=== PATIENT | female | born 1990 | race African-American/Black ===

== ENCOUNTER 2017-03-20 15:55 | Emergency (ER) | payer SELFPAY ==
[2017-03-20] MEDS ORDERED: ONDANSETRON 4 MG TAB.RAPDIS ONE (16:24)
[2017-03-20] MEDS ORDERED: ONDANSETRON 4 MG TAB.RAPDIS PO ONE (16:26)
[2017-03-20] MEDS ORDERED: METOCLOPRAMIDE HCL INJ/PF 10 MG/2 ML SDV IV ONE (16:27)
[2017-03-20] MEDS ORDERED: DIPHENHYDRAMINE HCL 50 MG/ML VIAL IV ONE (16:27)
--- NOTE | 2017-03-20 16:30 | ER Document Report ---
ED Medical Screen (RME) - General Chief Complaint: Flank Pain Stated Complaint: LEFT SIDE PAIN Time Seen by Provider: 03/20/17 16:25 Mode of Arrival: Wheelchair Information source: Patient Notes: This is a 26-year-old female with no prior medical problems who presents to the emergency room with left flank pain, nausea and vomiting since 9 PM last night. Patient denies any fever. Patient has not been able to tolerate any fluids or food. Past surgical history: Allergies: Iodine, shellfish Medications: Mirena Family history: No history of kidney stones TRAVEL OUTSIDE OF THE [place] IN LAST 30 DAYS: No - Related Data Allergies/Adverse Reactions: iodine [Iodine] Allergy (Verified 03/20/17 15:58) Past Medical History Renal/ Medical History: Denies: Hx Peritoneal Dialysis - Immunizations Hx Diphtheria, Pertussis, Tetanus Vaccination: Yes Physical Exam - Vital signs Vitals: Temp Pulse Resp BP Pulse Ox 98.3 F 96 22 H 117/79 100 03/20/17 15:58 03/20/17 15:58 03/20/17 15:58 03/20/17 15:58 03/20/17 15:58 Course - Vital Signs Vital signs: Temp Pulse Resp BP Pulse Ox 98.3 F 96 22 H 117/79 100 03/20/17 15:58 03/20/17 15:58 03/20/17 15:58 03/20/17 15:58 03/20/17 15:58
[2017-03-20] MEDS: NORMAL SALINE 1000 ML 1,000 ML IV PRN ×2 (17:09→19:07)
[2017-03-20 17:17] LABS: ABSOLUTE LYMPHOCYTES (AUTO) 1.4 10^3/uL (0.5-4.7); ABSOLUTE NEUT (AUTO) 9.9 10^3/uL (1.7-8.2); BASOPHILS % (AUTO) 0.3 % (0-2); EOSINOPHILS % (AUTO) 0.1 % (0-6); HEMATOCRIT 45.1 % (36.0-47.0); HEMOGLOBIN 14.6 g/dL (12.0-15.5); HGB HCT DIFFERENCE -1.3; LYMPHOCYTES % (AUTO) 11.2 % (13-45); MEAN CORPUSCULAR HEMOGLOBIN 29.2 pg (27.0-33.4); MEAN CORPUSCULAR HGB CONC 32.4 g/dL (32.0-36.0); MEAN CORPUSCULAR VOLUME 90 fl (80-97); MONOCYTES % (AUTO) 7.9 % (3-13); RED BLOOD COUNT 5.01 10^6/uL (3.72-5.28); SEGMENTED NEUTROPHILS % (AUTO) 80.5 % (42-78); WHITE BLOOD COUNT 12.3 10^3/uL (4.0-10.5)
[2017-03-20 17:33] LABS: PROTHROMBIN TIME 14.5 SEC (11.4-15.4)
[2017-03-20 17:40] LABS: ALANINE AMINOTRANSFERASE 25 U/L (9-52); ALBUMIN 4.4 g/dL (3.5-5.0); ALKALINE PHOSPHATASE 55 U/L (38-126); ANION GAP 13 (5-19); ASPARTATE AMINO TRANSFERASE 19 U/L (14-36); BILIRUBIN,DIRECT 0.3 mg/dL (0.0-0.4); BILIRUBIN,TOTAL 0.7 mg/dL (0.2-1.3); BLOOD UREA NITROGEN 15 mg/dL (7-20); CALCIUM 10.2 mg/dL (8.4-10.2); CARBON DIOXIDE 21 mmol/L (22-30); CHLORIDE 104 mmol/L (98-107); CREATININE RESULT 1.08 mg/dL (0.52-1.25); GLUCOSE 105 mg/dL (75-110); POTASSIUM 4.3 mmol/L (3.6-5.0); SODIUM 137.9 mmol/L (137-145); TOTAL PROTEIN 8.4 g/dL (6.3-8.2)
--- NOTE | 2017-03-20 17:45 | ER Document Report ---
ED General - General Chief Complaint: Flank Pain Stated Complaint: LEFT SIDE PAIN Time Seen by Provider: 03/20/17 16:25 Mode of Arrival: Wheelchair Notes: 26-year-old female presenting with 24 hours of left flank pain radiating to the left back, severe, associated with nausea vomiting and decreased oral intake. Associated with general fatigue. No dysuria. Decreased urine output. No hematuria. No fever chills vaginal discharge or bleeding. She does not have periods secondary to a Mirena IUD. TRAVEL OUTSIDE OF THE [place] IN LAST 30 DAYS: No - Related Data Allergies/Adverse Reactions: iodine [Iodine] Allergy (Verified 03/20/17 15:58) Past Medical History - General Information source: Patient - Social History Smoking Status: Never Smoker Family History: None Patient has suicidal ideation: No Patient has homicidal ideation: No Renal/ Medical History: Denies: Hx Peritoneal Dialysis - Immunizations Hx Diphtheria, Pertussis, Tetanus Vaccination: Yes Review of Systems - Review of Systems Notes: REVIEW OF SYSTEMS GEN: Denies fever, chills, weight loss ENT: Denies sore throat, nasal discharge, ear pain EYES: Denies blurry vision, eye pain, discharge CV: Denies chest pain, palpitations, edema RESP: Denies cough, shortness of breath, wheezing GI: D left flank pain nausea vomiting MSK: Back pain SKIN: Denies rash, skin lesions LYMPH: Denies swollen glands/lymph nodes NEURO: Denies headache, focal weakness or numbness, dizziness PSYCH: Denies depression, suicidal or homicidal ideation PHYSICAL EXAMINATION General: Under blanket in position Head: Atraumatic, normocephalic ENT: Mouth normal, oropharynx moist, no exudates or tonsillar enlargement Eyes: Conjunctiva normal, pupils equal, lids normal Neck: No JVD, supple, no guarding CVS: Normal rate, regular rhythm, no murmurs Resp: No resp distress, equal and normal breath sounds bilaterally GI: Nondistended, soft, no tenderness to palpation, no rebound or guarding Ext: No deformities, no edema, normal range of motion in upper and lower ext Back: N mild left CVA tenderness Skin: No rash, warm Lymphatic: No lymphadeopathy noted Neuro: Awake, alert. Face symmetric. GCS 15. Physical Exam - Vital signs Vitals: Temp Pulse Resp BP Pulse Ox 98.3 F 96 22 H 117/79 100 07/08/17 15:58 03/20/17 15:58 03/20/17 15:58 03/20/17 15:58 03/20/17 15:58 Course - Re-evaluation Re-evalutation: 03/20/17 19:42 Acute flank pain without fever and minimal CVA tenderness. She pyelonephritis versus stone. Urinalysis shows contamination and a few white but mostly red cells. Ordered CT which shows obstructing small ureterolithiasis on the left. Given the slight leukocytes and will treat her with Cipro and then she will receive a complement of kidney stone medications. She was improved with Toradol and fluids in the ED, did not have signs of sepsis, and is reliable to follow-up as an outpatient. I have discussed with the patient there likely diagnosis, aftercare plan, follow-up plans and my usual and customary return precautions. They verbalized understanding of this. - Vital Signs Vital signs: Temp Pulse Resp BP Pulse Ox 98.3 F 96 22 H 117/79 100 03/20/17 15:58 03/20/17 15:58 03/20/17 15:58 03/20/17 15:58 03/20/17 15:58 - Laboratory Result Diagrams: 03/20/17 17:00 03/20/17 17:00 Laboratory results interpreted by me: 03/20/17 03/20/17 03/20/17 17:00 17:00 18:23 WBC 12.3 H Seg Neutrophils % 80.5 H Lymphocytes % 11.2 L Absolute Neutrophils 9.9 H Carbon Dioxide 21 L Total Protein 8.4 H Urine Protein 100 H Urine Ketones TRACE H Urine Blood LARGE H - Diagnostic Test Radiology reviewed: Image reviewed Discharge - Discharge Clinical Impression: Left nephrolithiasis Condition: Good Disposition: HOME, SELF-CARE Instructions: Kidney Stone ([facility]) Additional Instructions: Your pain is being caused by a kidney stone. I am prescribing medication to control the pain and help to pass the stone. He also a very small infection in your urine which we should treat with antibiotics. He will receive a prescription for this as well. Is very important that you follow-up with a urologist within 1 week. I have given you this information. If you cannot get that appointment, or your pain gets worse or you get a fever or feel dizzy or have any other concerns please return to the ER immediately. Prescriptions: Tamsulosin HCl [Flomax] 0.4 mg PO QHS #7 cap.er.24h Ciprofloxacin HCl [Cipro 500 mg Tablet] 500 mg PO BID #20 tablet Ibuprofen [Motrin 600 Mg Tablet] 600 mg PO TID #15 tablet Ondansetron [Zofran Odt 4 mg Tablet] 1 - 2 tab PO Q4H PRN #15 tab.rapdis PRN Reason: For Nausea/Vomiting Oxycodone HCl/Acetaminophen [Percocet 5-325 mg Tablet] 1 - 2 tab PO Q4H PRN #15 tablet PRN Reason: Referrals: ROSALINDA GASTELUM MD [ACTIVE STAFF] - Follow up in 3-5 days
[2017-03-20] MEDS ORDERED: KETOROLAC TROMETHAMINE INJ/PF 30 MG/1 ML SDV IV ONE (18:43)
[2017-03-20 19:03] LABS: APPEARANCE,URINE CLOUDY; BILIRUBIN,URINE NEGATIVE (NEGATIVE); GLUCOSE, URINE NEGATIVE (NEGATIVE); KETONES,URINE TRACE mg/dL (NEGATIVE); LEUKOCYTE ESTERASE,URINE NEGATIVE (NEGATIVE); NITRITE,URINE NEGATIVE (NEGATIVE); PROTEIN,URINE 100 mg/dL (NEGATIVE); URINE SPECIFIC GRAVITY 1.035; UROBILINOGEN,URINE NEGATIVE mg/dL (<2.0)
[2017-03-20] MEDS ORDERED: CIPROFLOXACIN HCL 500 MG TABLET PO ONE (19:09)
--- NOTE | 2017-03-20 19:43 | RADIOLOGY REPORT (SQ) ---
EXAM DESCRIPTION: CT ABD/PELVIS NO ORAL OR IV COMPLETED DATE/TIME: 03/20/2017 7:25 pm REASON FOR STUDY: stone? COMPARISON: None. TECHNIQUE: CT scan of the abdomen and pelvis performed without intravenous or oral contrast. Images reviewed with lung, soft tissue, and bone windows. Reconstructed coronal and sagittal MPR images revi ewed. All images stored on PACS. All CT scanners at this facility use dose modulation, iterative reconstruction, and/or weight based d osing when appropriate to reduce radiation dose to as low as reasonably achievable (ALARA). [facility]: Dose Right [facility]: CareDose [facility]: Dose Right [facility]: Teradose 4D [facility]: Smart EQUISO RADIATION DOSE: Up-to-date CT equipment and radiation dose reduction techniques were employed. CTDIv ol: 18.1 mGy. DLP: 992 mGy-cm.mGy. LIMITATIONS: None. FINDINGS: LOWER CHEST: Trace left lung base atelectasis. No significant findings. No nodules or inf iltrates. NON-CONTRASTED LIVER, SPLEEN, ADRENALS: Evaluation limited by lack of IV contrast. No identified sign ificant masses. PANCREAS: No masses. No peripancreatic inflammatory changes. GALLBLADDER: No identified stones by CT criteria. No inflammatory changes to suggest cholecystitis. RIGHT KIDNEY AND URETER: No suspicious masses. Assessment limited by lack of IV contrast. No signif icant calcifications. No hydronephrosis or hydroureter. LEFT KIDNEY AND URETER: No suspicious masses. Assessment limited by lack of IV contrast. A single n onobstructing nephrolith is demonstrated. Moderate hydronephrosis and hydroureter on the basis of a 3 x 5 mm proximal ureterolith. AORTA AND RETROPERITONEUM: No aneurysm. No retroperitoneal masses or adenopathy. BOWEL AND PERITONEAL CAVITY: No obvious masses or inflammatory changes. No free fluid. APPENDIX: Normal. PELVIS, BLADDER, AND ABDOMINAL WALL:No abnormal masses. No free fluid. Bladder normal. An intrauteri ne device is present without evidence of gross complication. BONES: No significant findings. OTHER: No other significant finding. IMPRESSION: 3 x 5 mm left ureterolith with moderate upstream ureterectasis and hydronephrosis. TECHNICAL DOCUMENTATION: JOB ID: [id number] Quality ID # [id number]: Final reports with documentation of one or more dose reduction techniques (e.g., Au tomated exposure control, adjustment of the mA and/or kV according to patient size, use of iterative reconstruction technique) 2010 [employer]- All Rights Reserved
[2017-03-20 20:05] VITALS: BP 111/57
== END 2017-03-20 20:20 | disposition home or self-care (01) ==
LOC: ER 15:55
DX: N13.2 Hydronephrosis with renal and ureteral calculous obstruction (principal); R11.2 Nausea with vomiting, unspecified; R10.9 Unspecified abdominal pain; R53.83 Other fatigue; M54.9 Dorsalgia, unspecified; Z97.5 Presence of (intrauterine) contraceptive device
CPT/HCPCS: 99284; 96374; 96375; 36415; 84702; 85025; 85610; 80053; 81001; 74176; J1200; S0119; J1885; J2765; J7030

== ENCOUNTER 2017-03-22 14:32 | Emergency (ER) | payer SELFPAY ==
[2017-03-22] MEDS ORDERED: HYDROMORPHONE HCL INJ/PF 2 MG/ML AMPULE IV ONE (15:39)
[2017-03-22] MEDS ORDERED: ONDANSETRON HCL INJ/PF 4 MG/2 ML SDV IV ONE (15:39)
[2017-03-22] MEDS ORDERED: KETOROLAC TROMETHAMINE INJ/PF 30 MG/1 ML SDV IV ONE (15:39)
--- NOTE | 2017-03-22 15:56 | ER Document Report ---
ED General - General Chief Complaint: Flank Pain Stated Complaint: ABDOMINAL PAIN Time Seen by Provider: 03/22/17 15:33 Mode of Arrival: Ambulatory Information source: Patient Notes: 26 yr old female who was diagnosed with 3 x 5 mm stone with hydronephrosis presents with complaints of continued pain. Patient did not take her pain medication until just prior to arrival and now notes that pain has since resolved. Patient denies any fevers or chills admits ot nausea and ovmiting TRAVEL OUTSIDE OF THE [place] IN LAST 30 DAYS: No - HPI Onset: Other - 3 Day duration Onset/Duration: Persistent Quality of pain: Achy Severity: Mild Pain Level: 1 Associated symptoms: Nausea, Vomiting Exacerbated by: Denies Relieved by: Denies Similar symptoms previously: Yes Recently seen / treated by doctor: Yes - Related Data Allergies/Adverse Reactions: iodine [Iodine] Allergy (Verified 03/20/17 15:58) Past Medical History - Social History Smoking Status: Never Smoker Cigarette use (# per day): No Chew tobacco use (# tins/day): No Smoking Education Provided: No Frequency of alcohol use: None Drug Abuse: None Family History: None Patient has suicidal ideation: No Patient has homicidal ideation: No Renal/ Medical History: Denies: Hx Peritoneal Dialysis Past Surgical History: Reports: Hx Section - x1 - Immunizations Hx Diphtheria, Pertussis, Tetanus Vaccination: Yes Review of Systems - Review of Systems Notes: REVIEW OF SYSTEMS: CONSTITUTIONAL : Denies fever, chills, or sweats. Denies recent illness. EENT: Denies eye, ear, throat, or mouth pain or symptoms. Denies nasal or sinus congestion or discharge. Denies throat, tongue, or mouth swelling or difficulty swallowing. CARDIOVASCULAR: Denies chest pain. Denies palpitations or racing or irregular heart beat. Denies ankle edema. RESPIRATORY: Denies cough, cold, or chest congestion. Denies shortness of breath, difficulty breathing, or wheezing. GASTROINTESTINAL: Admits to flank pain GENITOURINARY: Denies difficulty urinating, painful urination, burning, frequency, blood in urine, or discharge. FEMALE GENITOURINARY: Denies vaginal bleeding, heavy or abnormal periods, irregular periods. Denies vaginal discharge or odor. MUSCULOSKELETAL: Denies back or neck pain or stiffness. Denies joint pain or swelling. SKIN: Denies rash, lesions or sores. HEMATOLOGIC : Denies easy bruising or bleeding. LYMPHATIC: Denies swollen, enlarged glands. NEUROLOGICAL: Denies confusion or altered mental status. Denies passing out or loss of consciousness. Denies dizziness or lightheadedness. Denies headache. Denies weakness or paralysis or loss of use of either side. Denies problems with gait or speech. Denies sensory loss, numbness, or tingling. Denies seizures. PSYCHIATRIC: Denies anxiety or stress. Denies depression, suicidal ideation, or homicidal ideation. ALL OTHER SYSTEMS REVIEWED AND NEGATIVE. PHYSICAL EXAMINATION: GENERAL: Well-appearing, well-nourished and in no acute distress. HEAD: Atraumatic, normocephalic. EYES: Pupils equal round and reactive to light, extraocular movements intact, conjunctiva are normal. ENT: Nares patent, oropharynx clear without exudates. Moist mucous membranes. NECK: Normal range of motion, supple without lymphadenopathy LUNGS: Breath sounds clear to auscultation bilaterally and equal. No wheezes rales or rhonchi. HEART: Regular rate and rhythm without murmurs ABDOMEN: Soft, nontender, nondistended abdomen. No guarding, no rebound. No masses appreciated. Female : deferred Musculoskeletal: Normal range of motion, no pitting or edema. No cyanosis. NEUROLOGICAL: Cranial nerves grossly intact. Normal speech, normal gait. Normal sensory, motor exams PSYCH: Normal mood, normal affect. SKIN: Warm, Dry, normal turgor, no rashes or lesions noted. Dictation was performed using [employer] voice recognition software Physical Exam - Vital signs Vitals: Temp Pulse Resp BP Pulse Ox 98.2 F 70 18 117/75 99 03/22/17 14:38 03/22/17 14:38 03/22/17 14:38 03/22/17 14:38 03/22/17 14:38 Course - Re-evaluation Re-evalutation: 03/22/17 17:02 Mild renal insufficiency is noted, patient otherwise looks well pain is well controlled, I will give her a bag of fluids she must follow-up with the urologist as her renal insufficiency is getting worse, there is no sign of infection at this time After performing a Medical Screening Examination, I estimate there is LOW risk for ACUTE APPENDICITIS, BOWEL OBSTRUCTION, ACUTE CHOLECYSTITIS, PERFORATED DIVERTICULITIS, INCARCERATED HERNIA, PANCREATITIS, PELVIC INFLAMMATORY DISEASE, PERFORATED ULCER, ECTOPIC , or TUBO-OVARIAN ABSCESS, thus I consider the discharge disposition reasonable. Also, there is no evidence or peritonitis , sepsis, or toxicity. I have reevaluated this patient multiple times and no significant life threatening changes are noted. The patient and I have discussed the diagnosis and risks, and we agree with discharging home with close follow-up with the understanding that symptoms and presentations can change. We also discussed returning to the Emergency Department immediately if new or worsening symptoms occur. We have discussed the symptoms which are most concerning (e.g., bloody stool, fever, changing or worsening pain, vomiting) that necessitate immediate return. - Vital Signs Vital signs: Temp Pulse Resp BP Pulse Ox 98.2 F 70 18 117/75 99 03/22/17 14:38 03/22/17 14:38 03/22/17 14:38 03/22/17 14:38 03/22/17 14:38 - Laboratory Result Diagrams: 03/22/17 16:09 03/22/17 16:09 Laboratory results interpreted by me: 03/22/17 03/22/17 15:33 16:09 Sodium 136.3 L Creatinine 1.38 H Est GFR ( Amer) 55 L Est GFR (Non-Af Amer) 46 L Urine Ketones TRACE H Urine Blood MODERATE H - Diagnostic Test Radiology reviewed: Image reviewed, Reports reviewed - previous ct notes 3x5 mm stone Discharge - Discharge Clinical Impression: Left nephrolithiasis, Acute renal insufficiency Nausea & vomiting Qualifiers: Vomiting type: unspecified Vomiting Intractability: non-intractable Qualified Code(s): R11.2 - Nausea with vomiting, unspecified Condition: Stable Disposition: HOME, SELF-CARE Instructions: Vomiting ([facility]) Prescriptions: Promethazine HCl [Phenergan 25 mg Tablet] 1 - 2 tab PO Q6H PRN #15 tablet PRN Reason: Referrals: CARMITA FLORES MD [ACTIVE STAFF] - Follow up tomorrow
[2017-03-22 16:20] LABS: ABSOLUTE BASOPHILS # (AUTO) 0.1 10^3/uL (0.0-0.2); ABSOLUTE EOSINOPHILS # (AUTO) 0.1 10^3/uL (0.0-0.6); ABSOLUTE LYMPHOCYTES (AUTO) 1.3 10^3/uL (0.5-4.7); ABSOLUTE MONOCYTES (AUTO) 0.8 10^3/uL (0.1-1.4); BASOPHILS % (AUTO) 0.7 % (0-2); EOSINOPHILS % (AUTO) 0.7 % (0-6); HEMOGLOBIN 13.5 g/dL (12.0-15.5); HGB HCT DIFFERENCE -1.5; MEAN CORPUSCULAR HEMOGLOBIN 29.5 pg (27.0-33.4); MEAN CORPUSCULAR HGB CONC 32.1 g/dL (32.0-36.0); MEAN CORPUSCULAR VOLUME 92 fl (80-97); MONOCYTES % (AUTO) 8.2 % (3-13); RED BLOOD COUNT 4.57 10^6/uL (3.72-5.28); RED CELL DISTRIBUTION WIDTH 12.9 % (11.5-14.0); SEGMENTED NEUTROPHILS % (AUTO) 76.4 % (42-78); WHITE BLOOD COUNT 9.1 10^3/uL (4.0-10.5)
[2017-03-22 16:36] LABS: ALANINE AMINOTRANSFERASE 17 U/L (9-52); ALBUMIN 3.7 g/dL (3.5-5.0); ALKALINE PHOSPHATASE 44 U/L (38-126); ANION GAP 9 (5-19); ASPARTATE AMINO TRANSFERASE 18 U/L (14-36); BILIRUBIN,DIRECT 0.3 mg/dL (0.0-0.4); BILIRUBIN,TOTAL 0.7 mg/dL (0.2-1.3); BLOOD UREA NITROGEN 9 mg/dL (7-20); CALCIUM 9.6 mg/dL (8.4-10.2); CARBON DIOXIDE 23 mmol/L (22-30); CHLORIDE 104 mmol/L (98-107); CREATININE RESULT 1.38 mg/dL (0.52-1.25); GLUCOSE 88 mg/dL (75-110); POTASSIUM 4.5 mmol/L (3.6-5.0); SODIUM 136.3 mmol/L (137-145); TOTAL PROTEIN 7.3 g/dL (6.3-8.2)
[2017-03-22 16:36] LABS: APPEARANCE,URINE CLEAR; BILIRUBIN,URINE NEGATIVE (NEGATIVE); GLUCOSE, URINE NEGATIVE (NEGATIVE); KETONES,URINE TRACE mg/dL (NEGATIVE); LEUKOCYTE ESTERASE,URINE NEGATIVE (NEGATIVE); NITRITE,URINE NEGATIVE (NEGATIVE); PROTEIN,URINE NEGATIVE (NEGATIVE); URINE SPECIFIC GRAVITY 1.008; UROBILINOGEN,URINE NEGATIVE mg/dL (<2.0)
[2017-03-22] MEDS ORDERED: NORMAL SALINE 1000 ML 1,000 ML IV ONE (16:54)
[2017-03-22 17:40] VITALS: BP 101/76
== END 2017-03-22 17:47 | disposition home or self-care (01) ==
LOC: ER 14:32
DX: N20.0 Calculus of kidney (principal); N28.9 Disorder of kidney and ureter, unspecified; R11.2 Nausea with vomiting, unspecified
CPT/HCPCS: 99284; 96360; 36415; 85025; 80053; 81001; J7030

== ENCOUNTER 2017-05-10 15:42 | Emergency (ER) | payer BC ==
[2017-05-10 15:49] VITALS: BP 118/74
[2017-05-10] MEDS ORDERED: METOCLOPRAMIDE HCL 10 MG TABLET PO ONE (16:11)
[2017-05-10] MEDS ORDERED: DIPHENHYDRAMINE HCL 25 MG CAPSULE PO ONE (16:11)
[2017-05-10] MEDS ORDERED: KETOROLAC TROMETHAMINE INJ/PF 30 MG/1 ML SDV IM ONE (16:11)
--- NOTE | 2017-05-10 16:11 | ER Document Report ---
ED Headache - General Chief Complaint: Headache <24 hrs old Stated Complaint: MIGRAINE Time Seen by Provider: 05/10/17 16:06 TRAVEL OUTSIDE OF THE [place] IN LAST 30 DAYS: No - HPI Patient complains to provider of: "Migraine" - for two days, taking excedrin without relief Patient reports: Occasional migraines Onset was: Gradual Timing: Still present Quality of pain: Throbbing - on the right side of her head Severity: Moderate Context: denies: CO exposure, Head injury, Insect bite, Meningitis exposure, Tick bite, Other Preceding symptoms: Typical of prior aura(s) Associated symptoms: Nausea/vomiting - without vomiting. denies: None, Chills, Confusion, Dizzy, Double/blurred vision, Fainting, Fever, Lightheaded, Memory loss, Motion sickness, Motor/sensory loss to arm, Motor/sensory loss to leg, Neck pain, Photophobia, Speech problems, Stiff neck, Sweaty, Tingling/numb sensation, Trouble walking, Other Exacerbated by: Light Similar symptoms previously: Yes Recently seen / treated by doctor: No - does not have a PCP or neurologist - Related Data Allergies/Adverse Reactions: iodine [Iodine] Allergy (Verified 05/10/17 15:49) Past Medical History - Social History Smoking Status: Unknown if Ever Smoked Family History: None Renal/ Medical History: Denies: Hx Peritoneal Dialysis Past Surgical History: Reports: Hx Section - x1 - Immunizations Hx Diphtheria, Pertussis, Tetanus Vaccination: Yes Review of Systems - Review of Systems Constitutional: No symptoms reported EENT: See HPI Neurological/Psychological: See HPI -: Yes All other systems reviewed and negative Physical Exam - Vital signs Vitals: Temp Pulse Resp BP Pulse Ox 98.0 F 90 16 118/74 100 05/10/17 15:46 05/10/17 15:46 05/10/17 15:46 05/10/17 15:46 05/10/17 15:46 - General General appearance: Appears well, Alert In distress: None - uncomfortable - HEENT Head: Normocephalic, Atraumatic Eyes: Normal Conjunctiva: Normal Extraocular movements intact: Yes Eyelashes: Normal Pupils: PERRL Corrective lenses worn: No - Respiratory Respiratory status: No respiratory distress Chest status: Nontender Breath sounds: Normal Chest palpation: Normal - Cardiovascular Rhythm: Regular Heart sounds: Normal auscultation, S1 appreciated, S2 appreciated Pulses: Normal: Radial, Dorsalis pedis Normal capillary refill: Yes - Neurological Neuro grossly intact: Yes Cognition: Normal Orientation: AAOx4 [place] Coma Scale Eye Opening: Spontaneous Michael Coma Scale Verbal: Oriented Michael Coma Scale Motor: Obeys Commands Michael Coma Scale Total: 15 Speech: Normal Cranial nerves: Normal Cerebellar coordination: Normal Motor strength normal: LUE, RUE, LLE, RLE 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 No: Weakness Sensory: Normal - Skin Skin Temperature: Warm Skin Moisture: Dry Skin Color: Normal Skin Turgor: Elastic Course - Re-evaluation Re-evalutation: 05/10/17 17:10 Patient does not have any focal neurologic deficits, nuchal rigidity, vital signs are within normal limits no papilledema. Patient is otherwise no acute distress and hemodynamically stable. Low index for suspicion of acute subarachnoid hemorrhage, meningitis or mass. Low suspicion for acute life- threatening etiology with intact neuro exam therefore no additional imaging or laboratory testing is indicated. Will discharge patient home with strict follow -up with PCP for blood pressure check within the next week. - Vital Signs Vital signs: Temp Pulse Resp BP Pulse Ox 98.0 F 90 16 118/74 100 05/10/17 15:46 05/10/17 15:46 05/10/17 15:46 05/10/17 15:46 05/10/17 15:46 Discharge - Discharge Clinical Impression: Migraine Qualifiers: Migraine type: with aura Status migrainosus presence: without status migrainosus Intractability: not intractable Qualified Code(s): G43.109 - Migraine with aura, not intractable, without status migrainosus Condition: Good Disposition: HOME, SELF-CARE Additional Instructions: HEADACHE: The physician does not feel that the headache you are experiencing has a serious underlying cause. Most headaches are due to emotional stress, with resultant muscle tension (tension headache). Occasionally, headaches are secondary to changes in the blood vessels of the scalp (vascular headache and migraine headache). Sometimes, a headache is the first symptom of another developing illness, such as a viral infection. You have no evidence of stroke, bleeding, meningitis, or other serious cause of your headache. The treatment of headaches varies with the severity and cause of the pain. Not all headaches need pain shots. In fact, there is evidence that using narcotics for headaches may make them worse in the long run. The physician will determine the therapy that's in your best interest. If you develop a fever, if the headache is different from any you've previously experienced, or if the headache progressively worsens, then call your physician at once or go to the emergency room. REGLAN (METOCLOPRAMIDE): Reglan has been prescribed. This medicine affects the stomach and intestines. It can be used to treat nausea and vomiting, to prevent reflux of stomach acid up into the esophagus, or to increase the contractions of the stomach and intestines. It is often prescribed for esophagitis, and for paralysis of the stomach in diabetics. Reglan can cause either mild restlessness or drowsiness. You should contact the doctor at once if you become extremely restless, anxious, or cannot sleep, or if you develop uncontrollable motions of the lips, tongue, or jaw. Do not take alcohol with this medicine. Do not drive or operate machinery until you have been taking this medicine long enough to know how it affects you. Call the doctor if you develop abdominal pains, lightheadedness, black stool, or blood in the stool or vomitus. USE OF DIPHENHYDRAMINE: Diphenhydramine (Benadryl) is an antihistamine and has been recommended to help treat your headache and to prevent side effects of other medications used to treat headaches. The medication can be repeated four times daily. Age Elixir (12.5 mg/tsp) 25 mg pill adult 1-2 tabs Antihistamines may cause drowsiness, especially with the first dose. Do not operate machinery or drive while under the effects of the medication. Do not combine the medication with alcohol, or with any other medication without talking to your doctor. ANTINAUSEA MEDICATION: You have been given a medication to suppress nausea and vomiting. This type of medication can be given as a shot, pill, or suppository. It will usually last for many hours. Pills and shots usually last six to eight hours, suppositories last about 12 hours. For the typical illness, only one or two doses of the medication may be necessary. Mild lightheadedness may occur. This type of medicine can cause drowsiness. Do not drive or operate dangerous machinery while under its influence. Do not mix with alcohol. See your doctor at once if you have muscle spasms or tightness, or uncontrollable motions (particularly of the neck, mouth, or jaw). Persistent vomiting or severe lightheadedness should also be evaluated by the physician. TORADOL INJECTION: You have been given an injection of ketorolac tromethamine (Toradol). This is an excellent, safe drug for pain control. It also has potent antiinflammatory action. You should have significant pain relief within about one hour. Toradol is not addicting and is non-sedating. It does not interfere with driving or work. Call or return if you develop itching, hives, shortness of breath, or rash. FOLLOW-UP CARE: If you have been referred to a physician for follow-up care, call the physician s office for an appointment as you were instructed or within the next two days. If you experience worsening or a significant change in your symptoms, notify the physician immediately or return to the Emergency Department at any time for re-evaluation. Prescriptions: Sumatriptan Succinate [Imitrex 25 mg Tablet] 25 mg PO ASDIR PRN #9 tablet PRN Reason: Forms: Return to Work Referrals: DORON SANTAMARIA MD [EMERITUS] - Follow up as needed
== END 2017-05-10 17:18 | disposition home or self-care (01) ==
LOC: ER 15:42
DX: G43.109 Migraine with aura, not intractable, without status migrainosus (principal)
CPT/HCPCS: 99283; 96372; J1885

== ENCOUNTER 2017-06-21 10:10 | Emergency (ER) | payer BC ==
[2017-06-21] MEDS ORDERED: EPINEPHRINE INJ/PF 1 MG/1 ML AMPULE IM ONE (10:21)
[2017-06-21] MEDS ORDERED: METHYLPREDNISOLONE INJ 125 MG/2 ML SDV IV ONE (10:22)
[2017-06-21] MEDS ORDERED: DIPHENHYDRAMINE HCL 50 MG/ML VIAL IM ONE (10:22)
[2017-06-21] MEDS ORDERED: DEXAMETHASONE SOD PHOS INJ 10 MG/1 ML VIAL IM ONE (10:22)
[2017-06-21] MEDS ORDERED: NORMAL SALINE 1000 ML 1,000 ML IV ONE (10:23)
[2017-06-21] MEDS ORDERED: FAMOTIDINE INJ/PF 20 MG/2 ML SDV IV ONE (10:23)
--- NOTE | 2017-06-21 10:23 | ER Document Report ---
ED Allergic Reaction - General Chief Complaint: Allergic Reaction Stated Complaint: POSSIBLE ALLERGIC REACTION Time Seen by Provider: 06/21/17 10:22 Mode of Arrival: Ambulatory Information source: Patient Notes: Patient is a 27-year-old female who is allergic to peanuts who presents to the ER today after she ate a donut 30 minutes ago that possibly was sitting next to another donut that had peanut on it. Patient is complaining of itchy tongue and throat, no swelling or trouble breathing at this time. She states that she has an EpiPen but it is at home and she does not have it with her. TRAVEL OUTSIDE OF THE [place] IN LAST 30 DAYS: No - Related Data Allergies/Adverse Reactions: iodine [Iodine] Allergy (Verified 06/21/17 10:21) nuts Allergy (Uncoded 06/21/17 10:21) Home Medications: Current Home Medications No Home Medications 06/21/17 [History] Past Medical History - General Information source: Patient - Social History Smoking Status: Never Smoker Family History: None Neurological Medical History: Reports: Hx Migraine Renal/ Medical History: Reports: Hx Kidney Stones. Denies: Hx Peritoneal Dialysis Past Surgical History: Reports: Hx Section - x1 - Immunizations Hx Diphtheria, Pertussis, Tetanus Vaccination: Yes Review of Systems - Review of Systems Constitutional: No symptoms reported EENT: See HPI Cardiovascular: No symptoms reported Respiratory: See HPI Gastrointestinal: No symptoms reported Genitourinary: No symptoms reported Female Genitourinary: No symptoms reported Musculoskeletal: No symptoms reported Skin: No symptoms reported Hematologic/Lymphatic: No symptoms reported Neurological/Psychological: No symptoms reported Physical Exam - Vital signs Vitals: Temp Pulse Resp BP Pulse Ox 97.6 F 95 18 122/71 100 06/21/17 10:21 06/21/17 10:21 06/21/17 10:21 06/21/17 10:21 06/21/17 10:21 - Notes Notes: PHYSICAL EXAMINATION: GENERAL: Mildly anxious appearing, but in no acute distress. HEAD: Atraumatic, normocephalic. EYES: Pupils equal round and reactive to light, extraocular movements intact, sclera anicteric, conjunctiva are normal. ENT: Airway patent, patient constantly rubbing the tongue on the roof of her mouth because she states it is itchy, otherwise no edema of the airway, ear canals without erythema or foreign body, TMs pearly carlos with good bony landmarks, nares patent, oropharynx clear without exudates. Moist mucous membranes. NECK: Normal range of motion, supple without lymphadenopathy LUNGS: CTAB and equal. No wheezes rales or rhonchi. HEART: Regular rate and rhythm without murmurs EXTREMITIES: Normal range of motion, no pitting edema. No cyanosis. NEUROLOGICAL: Cranial nerves grossly intact. Normal sensory/motor exams. PSYCH: Normal mood, normal affect. SKIN: Warm, Dry, normal turgor, no rashes or lesions noted Course - Re-evaluation Re-evalutation: 06/21/17 10:16 Patient received epinephrine IM, Pepcid IV, normal saline IV and Solu-Medrol IV and feels much better only minutes after receiving medications. I did watch patient for approximately 3 hours and she did very well. Patient wanted to go home. Patient states she does not need a refill of her EpiPen. - Vital Signs Vital signs: Temp Pulse Resp BP Pulse Ox 97.6 F 95 22 H 103/51 L 100 06/21/17 10:21 06/21/17 10:21 06/21/17 11:53 06/21/17 11:54 06/21/17 11:54 Discharge - Discharge Clinical Impression: Allergic reaction Qualifiers: Encounter type: initial encounter Qualified Code(s): T78.40XA - Allergy, unspecified, initial encounter Condition: Stable Disposition: HOME, SELF-CARE Additional Instructions: Return immediately for any new or worsening symptoms. Follow up with primary care provider, call tomorrow to make followup appointment. Forms: Return to Work
[2017-06-21 11:57] VITALS: BP 103/51
== END 2017-06-21 11:57 | disposition home or self-care (01) ==
LOC: ER 10:10
DX: T78.40XA Allergy, unspecified, initial encounter (principal); L29.8 Other pruritus; X58.XXXA Exposure to other specified factors, initial encounter; Z91.010 Allergy to peanuts
CPT/HCPCS: 99283; 96372; 96361; 96374; 96375; J0171; J2930; J7030; S0028

== ENCOUNTER 2018-12-10 19:46 | Emergency (ER) | payer BC ==
[2018-12-10 20:25] LABS: ABSOLUTE BASOPHILS # (AUTO) 0.1 10^3/uL (0.0-0.2); ABSOLUTE EOSINOPHILS # (AUTO) 0.4 10^3/uL (0.0-0.6); ABSOLUTE LYMPHOCYTES (AUTO) 2.6 10^3/uL (0.5-4.7); ABSOLUTE MONOCYTES (AUTO) 0.5 10^3/uL (0.1-1.4); ABSOLUTE NEUT (AUTO) 3.6 10^3/uL (1.7-8.2); BASOPHILS % (AUTO) 1.6 % (0-2); EOSINOPHILS % (AUTO) 6.1 % (0-6); HEMATOCRIT 39.6 % (36.0-47.0); HEMOGLOBIN 13.4 g/dL (12.0-15.5); LYMPHOCYTES % (AUTO) 35.6 % (13-45); MEAN CORPUSCULAR HEMOGLOBIN 30.5 pg (27.0-33.4); MEAN CORPUSCULAR HGB CONC 33.9 g/dL (32.0-36.0); MEAN CORPUSCULAR VOLUME 90 fl (80-97); MONOCYTES % (AUTO) 6.8 % (3-13); PLATELET COUNT 336 10^3/uL (150-450); RED BLOOD COUNT 4.41 10^6/uL (3.72-5.28); RED CELL DISTRIBUTION WIDTH 13.1 % (11.5-14.0); SEGMENTED NEUTROPHILS % (AUTO) 49.9 % (42-78); TOTAL CELLS COUNTED % (AUTO) 100 %; WHITE BLOOD COUNT 7.2 10^3/uL (4.0-10.5)
[2018-12-10 20:30] LABS: APPEARANCE,URINE CLEAR; BILIRUBIN,URINE NEGATIVE (NEGATIVE); COLOR,URINE YELLOW; GLUCOSE, URINE NEGATIVE (NEGATIVE); KETONES,URINE NEGATIVE (NEGATIVE); LEUKOCYTE ESTERASE,URINE NEGATIVE (NEGATIVE); NITRITE,URINE NEGATIVE (NEGATIVE); PROTEIN,URINE NEGATIVE (NEGATIVE); URINE SPECIFIC GRAVITY 1.016; UROBILINOGEN,URINE NEGATIVE mg/dL (<2.0)
[2018-12-10 20:41] LABS: ALANINE AMINOTRANSFERASE 25 U/L (9-52); ALBUMIN 3.9 g/dL (3.5-5.0); ALKALINE PHOSPHATASE 64 U/L (38-126); ANION GAP 10 (5-19); ASPARTATE AMINO TRANSFERASE 17 U/L (14-36); BILIRUBIN,DIRECT 0.2 mg/dL (0.0-0.4); BILIRUBIN,TOTAL 0.2 mg/dL (0.2-1.3); BLOOD UREA NITROGEN 14 mg/dL (7-20); CALCIUM 10.2 mg/dL (8.4-10.2); CARBON DIOXIDE 25 mmol/L (22-30); CHLORIDE 102 mmol/L (98-107); GLUCOSE 87 mg/dL (75-110); LIPASE 126.9 U/L (23-300); POTASSIUM 4.3 mmol/L (3.6-5.0); SODIUM 136.7 mmol/L (137-145); TOTAL PROTEIN 7.6 g/dL (6.3-8.2)
--- NOTE | 2018-12-10 21:55 | ER Document Report ---
ED General - General Chief Complaint: Abdominal Pain Stated Complaint: ABDOMINAL PAIN Time Seen by Provider: 12/10/18 20:08 Primary Care Provider: ROMELIA COTA MD [Primary Care Provider] - Follow up as needed KHUSHBU ANDUJAR MD [[facility]] - Follow up as needed Notes: Patient is a 28-year-old female who presents the emergency permit of abdominal cramping. Her symptoms started 2 days ago, but progressively got worse. She states that her cramping is primarily in her mid lower abdomen. She had a menstrual cycle from the to the , but states that her periods have been irregular since she was taken off Mirena in October 2017. She has a past medical history of kidney stones, but states that her symptoms do not feel like her kidney stone pain. TRAVEL OUTSIDE OF THE [place] IN LAST 30 DAYS: No - Related Data Allergies/Adverse Reactions: iodine [Iodine] Allergy (Verified 06/21/17 10:21) nuts Allergy (Uncoded 06/21/17 10:21) Past Medical History - Social History Smoking Status: Never Smoker Chew tobacco use (# tins/day): No Frequency of alcohol use: Occasional Drug Abuse: None Family History: None Patient has suicidal ideation: No Patient has homicidal ideation: No Neurological Medical History: Reports: Hx Migraine Renal/ Medical History: Reports: Hx Kidney Stones. Denies: Hx Peritoneal Dialysis Past Surgical History: Reports: Hx Section - x1 - Immunizations Hx Diphtheria, Pertussis, Tetanus Vaccination: Yes Review of Systems - Review of Systems Notes: REVIEW OF SYSTEMS: CONSTITUTIONAL : Denies recent illness. Denies recent unintentional weight loss. Denies fever, chills, or sweats. EENT: Denies eye, ear, throat, or mouth pain, discharge, or symptoms. Denies nasal or sinus congestion. CARDIOVASCULAR: Denies chest pain. RESPIRATORY: Denies shortness of breath, cough, congestion, difficulty breathing, or wheezing. GASTROINTESTINAL: See HPI GENITOURINARY: Denies difficulty urinating, burning, blood in urine, urgency or frequency. MUSCULOSKELETAL: Denies neck and back pain. Denies joint pain or swelling. SKIN: Denies rash, itchiness, or lesions HEMATOLOGIC : Denies easy bruising or bleeding. LYMPHATIC: Denies swollen, painful, enlarged glands. NEUROLOGICAL: Denies no numbness or tingling denies weakness. Denies headache. Denies altered mental status. Denies alteration in speech. PSYCHIATRIC: Denies stress, anxiety, alteration in sleep patterns, or depress ion. All other systems reviewed and negative. Physical Exam - Vital signs Vitals: Temp Pulse Resp BP Pulse Ox 97.4 F 79 15 112/65 99 12/10/18 20:16 12/10/18 20:16 12/10/18 20:16 12/10/18 20:16 12/10/18 20:16 - Notes Notes: PHYSICAL EXAMINATION: GENERAL: Appears well, healthy, well-nourished, no acute distress. HEAD: Normocephalic, atraumatic. EYES: PERRL, conjunctiva normal, all extraocular movements intact, sclera nonicteric ENT: Moist mucous membranes. NECK: Supple, no noticeable swelling, redness, rash. Normal range of motion. LUNGS: Equal breath sounds bilaterally and clear to auscultation. No wheezes rales or rhonchi. CARDIOVASCULAR: S1-S2, regular rate, regular rhythm. Radial pulses 2+, normal. ABDOMEN: Normoactive bowel sounds. Soft, tender lower pelvic area, no guarding, no rebound tenderness, and no masses palpated. EXTREMITIES: Normal strength and range of motion, no pitting or edema. No cyanosis. NEUROLOGICAL: Moves all extremities upon command. Strength 5/5 in all extremities. PSYCH: Normal mood, normal affect. SKIN: Warm, dry. No rash, lesions, ulcerations noted. Normal skin turgor. Course - Re-evaluation Re-evalutation: 12/10/18 22:45 Patient's transvaginal ultrasound is negative at this time. Her urinalysis is negative. Her labs are grossly unremarkable. I am suspecting she is abdominal cramping due to having irregular menstrual cycles. I do not suspect she has a bowel obstruction, appendicitis, or any life-threatening etiology at this time. I have advised her that she needs to follow-up with [facility] if she would like to have regular menstrual cycles. She states that she does not even take her normal medication for her allergies, therefore she wishes not to be on control at this time. I have referred [facility] to [facility] if she decides that she would like to be placed on control. I have discussed all labs and ultrasound results with her. Verbal discharge instructions were given to the patient. They verbalized understanding. They are stable for discharge. - Vital Signs Vital signs: Temp Pulse Resp BP Pulse Ox 97.8 F 77 16 122/75 97 12/10/18 23:04 12/10/18 23:04 12/10/18 23:04 12/10/18 23:04 12/10/18 23:04 - Laboratory Result Diagrams: 12/10/18 20:11 12/10/18 20:11 Laboratory results interpreted by me: 12/10/18 12/10/18 20:11 20:11 Eosinophils % 6.1 H Sodium 136.7 L Discharge - Discharge Clinical Impression: Abdominal cramping Condition: Stable Disposition: HOME, SELF-CARE Additional Instructions: You were seen today in the emergency department for abdominal cramping. Your labs are normal and your transvaginal ultrasound did not show any abnormalities. Your abdominal cramping may be due to to irregular periods. If you choose to be placed on control to help your periods become regular, please follow-up with [facility]. If you have worsening pain, develop vomiting, or have any other symptoms that are worrisome to you, please return to the emergency department. Referrals: ROMELIA COTA MD [Primary Care Provider] - Follow up as needed KHUSHBU ANDUJAR MD [[facility]] - Follow up as needed
--- NOTE | 2018-12-10 22:18 | RADIOLOGY REPORT (SQ) ---
EXAM DESCRIPTION: US TRANSVAGINAL COMPLETED DATE/TME: 12/10/2018 21:09 CLINICAL HISTORY: 28 years, Female, pelvic cramping COMPARISON:None. TECHNIQUE: Grayscale and Doppler sonogram of the pelvis. Transabdominal technique was performed.Transvaginal technique was used for better evaluation of the pelvic viscera FINDINGS: The uterus measures 10.4 cm longitudinally appearance. Small amount of fluid is noted in the cervical canal. Endometrial stripe: 6.5 mm in thickness. Right ovary: Measures 3.7 x 1.8 x 3.5 cm. Normal doppler flow. No mass lesion. Small hemorrhagic cyst measuring approximately 1.8 cm is noted. No follow-up imaging is recommended. Reference: Radiology 2010 May;256(3):943-54 Left ovary: Measures 2.5 x 2.1 x 2.1 cm. Normal doppler flow. No mass lesion. Free fluid: None. IMPRESSION: No acute sonographic abnormality.
[2018-12-10 23:51] VITALS: BP 128/64
== END 2018-12-10 23:09 | disposition home or self-care (01) ==
LOC: ER 19:46
DX: R10.30 Lower abdominal pain, unspecified (principal); Z87.442 Personal history of urinary calculi
CPT/HCPCS: 36415; 76830; 80053; 81001; 83690; 84702; 85025; 93976; 99284

== ENCOUNTER → 2019-01-20 | Outpatient (CLI) | payer BC, MEDICAID ==
--- NOTE | 2019-01-20 11:38 | RADIOLOGY REPORT (SQ) ---
EXAM DESCRIPTION: CT HEAD WITHOUT COMPLETED DATE/TIME: 01/20/2019 11:22 am REASON FOR STUDY: HEADACHE (R51), SYNCOPE AND COLLAPSE (R55), DIZZINESS AND GIDDINESS (R42) R51 HEA DACHE R55 SYNCOPE AND COLLAPSE R42 DIZZINESS AND GIDDINESS COMPARISON: None. TECHNIQUE: Axial images acquired through the brain without intravenous contrast. Images reviewed wi th bone, brain and subdural windows. Additional sagittal and coronal reconstructions were generated. Images stored on PACS. All CT scanners at this facility use dose modulation, iterative reconstruction, and/or weight based d osing when appropriate to reduce radiation dose to as low as reasonably achievable (ALARA). [facility]: Dose Right [facility]: CareDose [facility]: Dose Right [facility]: Teradose 4D [facility]: E4 Health RADIATION DOSE: CT Rad equipment meets quality standard of care and radiation dose reduction techniq ues were employed. CTDIvol: 48.7 mGy. DLP: 1003 mGy-cm. mGy. LIMITATIONS: None. FINDINGS: VENTRICLES: Normal size and contour. CEREBRUM: No masses. No hemorrhage. No midline shift. No evidence for acute infarction. Normal gra y/white matter differentiation. No areas of low density in the white matter. CEREBELLUM: No masses. No hemorrhage. No alteration of density. No evidence for acute infarction. EXTRAAXIAL SPACES: No fluid collections. No masses. ORBITS AND GLOBE: No intra- or extraconal masses. Normal contour of globe without masses. CALVARIUM: No fracture. PARANASAL SINUSES: No fluid or mucosal thickening. SOFT TISSUES: No mass or hematoma. OTHER: No other significant finding. IMPRESSION: NORMAL BRAIN CT WITHOUT CONTRAST. EVIDENCE OF ACUTE STROKE: NO. COMMENT: Quality ID # [id number]: Final reports with documentation of one or more dose reduction techniques (e.g., Automated exposure control, adjustment of the mA and/or kV according to patient size, use of iterative reconstruction technique) TECHNICAL DOCUMENTATION: JOB ID: [id number] [employer]- All Rights Reserved Reading location - IP/workstation name: [email or web address]
== END ==
LOC: RAD 11:02
PROVIDERS: ATTEND Psychiatry & Neurology Neurology
DX: R51 Headache (principal); R55 Syncope and collapse; R42 Dizziness and giddiness
CPT/HCPCS: 70450

== ENCOUNTER 2019-02-24 08:34 | Emergency (ER) | payer BC, MEDICAID ==
--- NOTE | 2019-02-24 09:52 | ER Document Report ---
ED Medical Screen (RME) - General Chief Complaint: Vag Bleeding, +preg <12wks Stated Complaint: ABDOMINAL CRAMPING Time Seen by Provider: 02/24/19 09:46 Primary Care Provider: JASON JNOAS MD [Primary Care Provider] - Follow up as needed Information source: Patient Notes: Patient is 28-year-old female G2, P1 approximately 5 weeks and 2 days who presents to the ER today for 1 day of lower left abdominal cramping that is "mild" and one episode of medium red blood in the toilet this morning during urination. Patient denies any clots. TRAVEL OUTSIDE OF THE [place] IN LAST 30 DAYS: No - Related Data Allergies/Adverse Reactions: iodine [Iodine] Allergy (Verified 06/21/17 10:21) nuts Allergy (Uncoded 06/21/17 10:21) Past Medical History - General Information source: Patient - Social History Chew tobacco use (# tins/day): No Frequency of alcohol use: None Drug Abuse: None Neurological Medical History: Reports: Hx Migraine Renal/ Medical History: Reports: Hx Kidney Stones. Denies: Hx Peritoneal Dialysis Past Surgical History: Reports: Hx Section - x1 - Immunizations Hx Diphtheria, Pertussis, Tetanus Vaccination: Yes Review of Systems - Review of Systems Female Genitourinary: See HPI Physical Exam - Vital signs Vitals: Temp Pulse Resp BP Pulse Ox 98.3 F 98 18 134/86 H 98 02/24/19 08:42 02/24/19 08:42 02/24/19 08:42 02/24/19 08:42 02/24/19 08:42 - Notes Notes: PHYSICAL EXAMINATION: GENERAL: Well-appearing and in no acute distress. ABDOMEN: Soft, no tenderness. No guarding, no rebound Course - Vital Signs Vital signs: Temp Pulse Resp BP Pulse Ox 98.3 F 98 18 134/86 H 98 02/24/19 08:42 02/24/19 08:42 02/24/19 08:42 02/24/19 08:42 02/24/19 08:42 Doctor's Discharge - Discharge Referrals: JASON JONAS MD [Primary Care Provider] - Follow up as needed
[2019-02-24 10:11] LABS: ABSOLUTE BASOPHILS # (AUTO) 0.1 10^3/uL (0.0-0.2); ABSOLUTE EOSINOPHILS # (AUTO) 0.4 10^3/uL (0.0-0.6); ABSOLUTE LYMPHOCYTES (AUTO) 1.9 10^3/uL (0.5-4.7); ABSOLUTE MONOCYTES (AUTO) 0.4 10^3/uL (0.1-1.4); BASOPHILS % (AUTO) 1.1 % (0-2); EOSINOPHILS % (AUTO) 5.8 % (0-6); HEMATOCRIT 40.6 % (36.0-47.0); HEMOGLOBIN 13.5 g/dL (12.0-15.5); LYMPHOCYTES % (AUTO) 27.5 % (13-45); MEAN CORPUSCULAR HEMOGLOBIN 29.9 pg (27.0-33.4); MEAN CORPUSCULAR HGB CONC 33.2 g/dL (32.0-36.0); MEAN CORPUSCULAR VOLUME 90 fl (80-97); MONOCYTES % (AUTO) 6.3 % (3-13); PLATELET COUNT 322 10^3/uL (150-450); RED BLOOD COUNT 4.51 10^6/uL (3.72-5.28); RED CELL DISTRIBUTION WIDTH 13.2 % (11.5-14.0); SEGMENTED NEUTROPHILS % (AUTO) 59.3 % (42-78); TOTAL CELLS COUNTED % (AUTO) 100 %; WHITE BLOOD COUNT 6.8 10^3/uL (4.0-10.5)
[2019-02-24 10:28] LABS: APPEARANCE,URINE SLIGHTLY-CLOUDY; BILIRUBIN,URINE NEGATIVE (NEGATIVE); COLOR,URINE YELLOW; GLUCOSE, URINE NEGATIVE (NEGATIVE); KETONES,URINE NEGATIVE (NEGATIVE); LEUKOCYTE ESTERASE,URINE NEGATIVE (NEGATIVE); NITRITE,URINE NEGATIVE (NEGATIVE); PROTEIN,URINE NEGATIVE (NEGATIVE); URINE SPECIFIC GRAVITY 1.026; UROBILINOGEN,URINE NEGATIVE mg/dL (<2.0)
--- NOTE | 2019-02-24 11:24 | RADIOLOGY REPORT (SQ) ---
EXAM DESCRIPTION: U/S OB TRANSVAGINAL W/O DOP COMPLETED DATE/TIME: 02/24/2019 11:10 am REASON FOR STUDY: 5w2d abd cramping llq, bleeding today COMPARISON: None. TECHNIQUE: Transvaginal static and realtime grayscale images acquired of the pelvis. Additional dino cted spectral and color Doppler images recorded. All images stored on PACs. [facility],[address] CLINICAL DATES: 5 weeks 2 days. LIMITATIONS: None. FINDINGS: FETUS: Single Living intrauterine . ULTRASOUND EGA: 5 weeks 5 days. ULTRASOUND GATO: 10/22/2019 EFW: Not applicable less than 20 weeks. CRL: No pole at this time. FHR: No heart activity. SURVEY: Too early to assess. PLACENTA: Not yet developed due to early gestation. SUBCHORIONIC BLEED: No. SIZE OF BLEED: Not applicable. UTERUS: No masses. No anomalies. CERVICAL LENGTH: 4.1 cm. Closed. RIGHT ADNEXA: Ovary not identified due to poor acoustical window. No adnexal free fluid. No adnexal masses. LEFT ADNEXA: Ovary not identified due to poor acoustical window. No adnexal free fluid. No adnexal masses. FREE FLUID: None. OTHER: No other significant finding. IMPRESSION: 5 week 5 day gestational sac. No pole or heart activity. Followup beta HCG and u ltrasound is recommended. Trimester of : First - 0 to 13 weeks. TECHNICAL DOCUMENTATION: JOB ID: [id number] [email or web address]- All Rights Reserved rev Reading location - IP/workstation name: [email or web address]
--- NOTE | 2019-02-24 11:34 | ER Document Report ---
ED GI/ - General Chief Complaint: Vag Bleeding, +preg <12wks Stated Complaint: ABDOMINAL CRAMPING Time Seen by Provider: 02/24/19 09:46 Primary Care Provider: JASON JONAS MD [Primary Care Provider] - Follow up as needed Mode of Arrival: Ambulatory Information source: Patient Notes: Patient is 28-year-old female G2, P1 approximately 5 weeks and 2 days who presents to the ER today for 1 day of lower left abdominal cramping that is "mild" and one episode of medium red blood in the toilet this morning during urination. Patient denies any clots. TRAVEL OUTSIDE OF THE [place] IN LAST 30 DAYS: No - Related Data Allergies/Adverse Reactions: iodine [Iodine] Allergy (Verified 06/21/17 10:21) nuts Allergy (Uncoded 06/21/17 10:21) Past Medical History - General Information source: Patient - Social History Smoking Status: Never Smoker Chew tobacco use (# tins/day): No Frequency of alcohol use: None Drug Abuse: None Family History: None Patient has suicidal ideation: No Patient has homicidal ideation: No Neurological Medical History: Reports: Hx Migraine Renal/ Medical History: Reports: Hx Kidney Stones. Denies: Hx Peritoneal Dialysis Past Surgical History: Reports: Hx Section - x1 - Immunizations Hx Diphtheria, Pertussis, Tetanus Vaccination: Yes Review of Systems - Review of Systems Constitutional: No symptoms reported EENT: No symptoms reported Cardiovascular: No symptoms reported Respiratory: No symptoms reported Gastrointestinal: No symptoms reported Genitourinary: No symptoms reported Female Genitourinary: See HPI Musculoskeletal: No symptoms reported Skin: No symptoms reported Hematologic/Lymphatic: No symptoms reported Neurological/Psychological: No symptoms reported Physical Exam - Vital signs Vitals: Temp Pulse Resp BP Pulse Ox 98.3 F 98 18 134/86 H 98 02/24/19 08:42 02/24/19 08:42 02/24/19 08:42 02/24/19 08:42 02/24/19 08:42 - Notes Notes: PHYSICAL EXAMINATION: GENERAL: Well-appearing and in no acute distress. HEAD: Atraumatic, normocephalic. EYES: Pupils equal round and reactive to light, extraocular movements intact, sclera anicteric, conjunctiva are normal. NECK: Normal range of motion, supple without lymphadenopathy LUNGS: CTAB and equal. No wheezes rales or rhonchi. HEART: Regular rate and rhythm without murmurs ABDOMEN: Soft, no tenderness. No guarding, no rebound BACK: no vertebral tenderness, normal ROM GI/: no CVA tenderness EXTREMITIES: Normal range of motion, no pitting edema. No cyanosis. NEUROLOGICAL: Cranial nerves grossly intact. Normal sensory/motor exams. PSYCH: Normal mood, normal affect. SKIN: Warm, Dry, normal turgor, no rashes or lesions noted Course - Re-evaluation Re-evalutation: 02/24/19 11:32 Pelvic ultrasound reveals a living intrauterine 5 weeks and 5 days, too early to assess pole or heart rate, patient to return in 2 days for repeat hCG lab work. - Vital Signs Vital signs: Temp Pulse Resp BP Pulse Ox 98.3 F 98 18 134/86 H 98 02/24/19 08:42 02/24/19 08:42 02/24/19 08:42 02/24/19 08:42 02/24/19 08:42 - Laboratory Result Diagrams: 02/24/19 09:56 Laboratory results interpreted by me: 02/24/19 02/24/19 09:56 09:56 Beta HCG, Quant 86712.00 H Urine Blood LARGE H Discharge - Discharge Clinical Impression: Vaginal bleeding affecting early Condition: Stable Disposition: HOME, SELF-CARE Instructions: Bleeding During Early ([facility]) Additional Instructions: Return immediately for any new or worsening symptoms. Follow up with [facility], call Wednesday to make followup appointment. Please return here in 2 days for repeat hCG to be drawn. Forms: Follow-Up Laboratory Testing Referrals: JASON JONAS MD [Primary Care Provider] - Follow up as needed
[2019-02-24 11:47] VITALS: BP 146/94
== END 2019-02-24 11:48 | disposition home or self-care (01) ==
LOC: ER 08:34
DX: O20.9 Hemorrhage in early pregnancy, unspecified (principal); O26.891 Other specified pregnancy related conditions, first trimester; R10.30 Lower abdominal pain, unspecified; Z3A.00 Weeks of gestation of pregnancy not specified; Z91.018 Allergy to other foods
CPT/HCPCS: 36415; 76817; 81001; 84702; 85025; 86900; 86901; 99284

== ENCOUNTER → 2019-02-26 | Outpatient (CLI) | payer BC | LOC: LAB 13:55 | PROVIDERS: ATTEND Physician Assistant | DX: O46.90 Antepartum hemorrhage, unspecified, unspecified trimester (principal) | CPT/HCPCS: 36415; 84702 ==

== ENCOUNTER 2019-05-27 22:35 | Emergency (ER) | payer BC, MEDICAID ==
[2019-05-27 23:08] LABS: ABSOLUTE BASOPHILS # (AUTO) 0.1 10^3/uL (0.0-0.2); ABSOLUTE EOSINOPHILS # (AUTO) 0.2 10^3/uL (0.0-0.6); ABSOLUTE LYMPHOCYTES (AUTO) 2.4 10^3/uL (0.5-4.7); ABSOLUTE MONOCYTES (AUTO) 0.6 10^3/uL (0.1-1.4); ABSOLUTE NEUT (AUTO) 6.7 10^3/uL (1.7-8.2); BASOPHILS % (AUTO) 1.1 % (0-2); HEMOGLOBIN 13.4 g/dL (12.0-15.5); LYMPHOCYTES % (AUTO) 23.7 % (13-45); MEAN CORPUSCULAR HEMOGLOBIN 30.6 pg (27.0-33.4); MEAN CORPUSCULAR HGB CONC 34.4 g/dL (32.0-36.0); MEAN CORPUSCULAR VOLUME 89 fl (80-97); MONOCYTES % (AUTO) 6.2 % (3-13); PLATELET COUNT 272 10^3/uL (150-450); RED BLOOD COUNT 4.38 10^6/uL (3.72-5.28); RED CELL DISTRIBUTION WIDTH 13.2 % (11.5-14.0); TOTAL CELLS COUNTED % (AUTO) 100 %
[2019-05-27 23:16] LABS: APPEARANCE,URINE CLOUDY; BILIRUBIN,URINE NEGATIVE (NEGATIVE); COLOR,URINE AMBER; GLUCOSE, URINE NEGATIVE (NEGATIVE); KETONES,URINE NEGATIVE (NEGATIVE); LEUKOCYTE ESTERASE,URINE MODERATE (NEGATIVE); NITRITE,URINE NEGATIVE (NEGATIVE); PROTEIN,URINE 30 mg/dL (NEGATIVE); URINE SPECIFIC GRAVITY 1.025; UROBILINOGEN,URINE NEGATIVE mg/dL (<2.0)
--- NOTE | 2019-05-27 23:29 | ER Document Report ---
ED GI/ - General Chief Complaint: OB Problem (<20wks) Stated Complaint: ABDOMINAL CRAMPING Time Seen by Provider: 05/27/19 23:15 Primary Care Provider: JASON JONAS MD [Primary Care Provider] - Follow up as needed Information source: Patient Notes: Chief complaint: abdominal pain: History of complain:( obtained from----patient) 29 years old female who is G2, P1, 18 and half weeks presents today with left-sided abdominal pain and spotting. Took Tylenol prior to arrival. 325 mg did not help the pain. Denies any nausea vomiting dysuria frequency urgency. Denies any constitutional symptoms. Onset: As above Duration: Gradual Severity: Mild to moderate Quality: Sharp Context: Unknown Exacerbating factor and relieving factors: None REVIEW OF SYSTEMS: CONSTITUTIONAL : Denies fever, chills, or sweats. Denies recent illness. EENT: Denies eye, ear, throat, or mouth pain or symptoms. Denies nasal or sinus congestion or discharge. Denies throat, tongue, or mouth swelling or difficulty swallowing. CARDIOVASCULAR: Denies chest pain. Denies palpitations or racing or irregular heart beat. Denies ankle edema. RESPIRATORY: Denies cough, cold, or chest congestion. Denies shortness of breath, difficulty breathing, or wheezing. GASTROINTESTINAL: Denies distention. Denies nausea, vomiting, or diarrhea. Denies blood in vomitus, stools, or per rectum. Denies black, tarry stools. Denies constipation. GENITOURINARY: Denies difficulty urinating, painful urination, burning, frequency, blood in urine, or discharge. FEMALE GENITOURINARY: Denies vaginal bleeding, heavy or abnormal periods, irregular periods. Denies vaginal discharge or odor. MUSCULOSKELETAL: Denies back or neck pain or stiffness. Denies joint pain or swelling. SKIN: Denies rash, lesions or sores. HEMATOLOGIC : Denies easy bruising or bleeding. LYMPHATIC: Denies swollen, enlarged glands. NEUROLOGICAL: Denies confusion or altered mental status. Denies passing out or loss of consciousness. Denies dizziness or lightheadedness. Denies headache. Denies weakness or paralysis or loss of use of either side. Denies problems with gait or speech. Denies sensory loss, numbness, or tingling. Denies seizures. PSYCHIATRIC: Denies anxiety or stress. Denies depression, suicidal ideation, or homicidal ideation. ALL OTHER SYSTEMS REVIEWED AND NEGATIVE. PHYSICAL EXAMINATION: GENERAL: Well-appearing, well-nourished and in no acute distress. HEAD: Atraumatic, normocephalic. EYES: Pupils equal round and reactive to light, extraocular movements intact, conjunctiva are normal. ENT: Nares patent, oropharynx clear without exudates. Moist mucous membranes. NECK: Normal range of motion, supple without lymphadenopathy LUNGS: Breath sounds clear to auscultation bilaterally and equal. No wheezes rales or rhonchi. HEART: Regular rate and rhythm without murmurs ABDOMEN: Soft, nontender, left lower quadrant mildly tender abdomen. No guarding, no rebound. No masses appreciated. Female : deferred Musculoskeletal: Normal range of motion, no pitting or edema. No cyanosis. NEUROLOGICAL: Cranial nerves grossly intact. Normal speech, normal gait. Miya l sensory, motor exams PSYCH: Normal mood, normal affect. SKIN: Warm, Dry, normal turgor, no rashes or lesions noted. Dictation was performed using [employer] voice recognition software TRAVEL OUTSIDE OF THE [place] IN LAST 30 DAYS: No - HPI Notes: 05/27/19 23:28 Dictated - Related Data Allergies/Adverse Reactions: iodine [Iodine] Allergy (Verified 06/21/17 10:21) nuts Allergy (Uncoded 06/21/17 10:21) Past Medical History - Social History Smoking Status: Never Smoker Frequency of alcohol use: None Drug Abuse: None Lives with: Family Family History: None Neurological Medical History: Reports: Hx Migraine Renal/ Medical History: Reports: Hx Kidney Stones. Denies: Hx Peritoneal Dialysis Past Surgical History: Reports: Hx Section - x1 - Immunizations Hx Diphtheria, Pertussis, Tetanus Vaccination: Yes Review of Systems - Review of Systems Notes: Dictated Physical Exam - Vital signs Vitals: Temp Pulse Resp BP Pulse Ox 98.3 F 106 H 18 115/78 96 05/27/19 22:43 05/27/19 22:43 05/27/19 22:43 05/27/19 22:43 05/27/19 22:43 - Notes Notes: Dictated Course - Vital Signs Vital signs: Temp Pulse Resp BP Pulse Ox 98.3 F 106 H 18 115/78 96 05/27/19 22:43 05/27/19 22:43 05/27/19 22:43 05/27/19 22:43 05/27/19 22:43 - Laboratory Result Diagrams: 05/27/19 22:50 05/27/19 22:50 Laboratory results interpreted by me: 05/27/19 05/27/19 22:50 22:50 Sodium 135.6 L BUN 6 L Beta HCG, Quant 83836.00 H Urine Protein 30 H Ur Leukocyte Esterase MODERATE H Urine Ascorbic Acid 40 H - Diagnostic Test Radiology reviewed: Reports reviewed - Single intrauterine of 19 weeks Discharge - Discharge Clinical Impression: Threatened Qualifiers: Weeks of gestation: 19 weeks Qualified Code(s): Z3A.19 - 19 weeks gestation of Abdominal pain Qualifiers: Abdominal location: left lower quadrant Qualified Code(s): R10.32 - Left lower quadrant pain Condition: Fair Disposition: HOME, SELF-CARE Instructions: Abdominal Pain ([facility]), Threatened Abortions ( Patients) Referrals: JASON JONAS MD [Primary Care Provider] - Follow up as needed
[2019-05-27 23:47] LABS: ALBUMIN 3.7 g/dL (3.5-5.0); ALKALINE PHOSPHATASE 53 U/L (38-126); ANION GAP 10 (5-19); ASPARTATE AMINO TRANSFERASE 31 U/L (14-36); BILIRUBIN,DIRECT 0.1 mg/dL (0.0-0.4); BILIRUBIN,TOTAL 0.2 mg/dL (0.2-1.3); BLOOD UREA NITROGEN 6 mg/dL (7-20); CALCIUM 10.1 mg/dL (8.4-10.2); CARBON DIOXIDE 24 mmol/L (22-30); CHLORIDE 102 mmol/L (98-107); GLUCOSE 86 mg/dL (75-110); TOTAL PROTEIN 6.9 g/dL (6.3-8.2)
--- NOTE | 2019-05-28 01:30 | RADIOLOGY REPORT (SQ) ---
EXAM DESCRIPTION: US LIMITED COMPLETED DATE/TME: 05/28/2019 00:24 CLINICAL HISTORY: 29 years Female, Abdominal pain/bleeding Comparison:Feb 24 2019 TECHNIQUE/LIMITATION: Targeted OB sonogram for requested parameters only. FINDINGS: Single IUP EGA is 19w 5d with GATO of 10/17/19 EFW is 311g Cardiac activity: 131-bpm. CHLOÉ: Adequate. Placenta: Anterior.. No demonstrated abruption or previa. Presentation: Transverse. Cervical length: 3.3-cm. Closed appearance. IMPRESSION: Targeted OB sonogram for requested parameters
[2019-05-28 01:49] VITALS: BP 115/79
== END 2019-05-28 01:49 | disposition home or self-care (01) ==
LOC: ER 22:35
DX: O20.0 Threatened abortion (principal); O26.892 Other specified pregnancy related conditions, second trimester; R10.32 Left lower quadrant pain; R10.814 Left lower quadrant abdominal tenderness; O26.852 Spotting complicating pregnancy, second trimester; Z3A.19 19 weeks gestation of pregnancy; Z87.442 Personal history of urinary calculi; Z91.018 Allergy to other foods; Z88.8 Allergy status to other drugs, medicaments and biological substances
CPT/HCPCS: 36415; 76815; 80053; 81001; 83690; 84702; 85025; 86900; 86901; 99284

== ENCOUNTER 2019-06-11 17:59 | Outpatient (CLI) | payer BC, MEDICAID ==
[2019-06-11 18:44] LABS: APPEARANCE,URINE SLIGHTLY-CLOUDY; BILIRUBIN,URINE NEGATIVE (NEGATIVE); COLOR,URINE YELLOW; GLUCOSE, URINE NEGATIVE (NEGATIVE); KETONES,URINE 20 mg/dL (NEGATIVE); LEUKOCYTE ESTERASE,URINE TRACE (NEGATIVE); NITRITE,URINE NEGATIVE (NEGATIVE); PROTEIN,URINE NEGATIVE (NEGATIVE); URINE SPECIFIC GRAVITY 1.028; UROBILINOGEN,URINE NEGATIVE mg/dL (<2.0)
[2019-06-11 18:59] LABS: URINE AMPHETAMINES SCREEN NEGATIVE; URINE BARBITURATES SCREEN NEGATIVE; URINE BENZODIAZEPINES SCREEN NEGATIVE; URINE COCAINE SCREEN NEGATIVE; URINE MARIJUANA (THC) SCREEN NEGATIVE; URINE METHADONE SCREEN NEGATIVE; URINE PHENCYCLIDINE SCREEN NEGATIVE
== END 2019-06-11 19:14 | disposition home or self-care (01) ==
LOC: LC 17:59
PROVIDERS: ATTEND Obstetrics & Gynecology
PROC: 4A1HXCZ Monitoring of Products of Conception, Cardiac Rate, External Approach (ICD-10-PCS; principal; 2019-06-11)
DX: O26.892 Other specified pregnancy related conditions, second trimester (principal); R10.9 Unspecified abdominal pain; Z3A.21 21 weeks gestation of pregnancy
CPT/HCPCS: 80307; 81001

== ENCOUNTER 2019-08-08 10:47 | Outpatient (CLI) | payer BC, MEDICAID ==
[2019-08-08 11:23] LABS: APPEARANCE,URINE CLOUDY; BILIRUBIN,URINE NEGATIVE (NEGATIVE); COLOR,URINE AMBER; GLUCOSE, URINE NEGATIVE (NEGATIVE); KETONES,URINE NEGATIVE (NEGATIVE); LEUKOCYTE ESTERASE,URINE SMALL (NEGATIVE); NITRITE,URINE NEGATIVE (NEGATIVE); PROTEIN,URINE 30 mg/dL (NEGATIVE); URINE SPECIFIC GRAVITY 1.021; UROBILINOGEN,URINE NEGATIVE mg/dL (<2.0)
[2019-08-08 11:46] LABS: URINE AMPHETAMINES SCREEN NEGATIVE; URINE BARBITURATES SCREEN NEGATIVE; URINE BENZODIAZEPINES SCREEN NEGATIVE; URINE COCAINE SCREEN NEGATIVE; URINE MARIJUANA (THC) SCREEN NEGATIVE; URINE METHADONE SCREEN NEGATIVE; URINE PHENCYCLIDINE SCREEN NEGATIVE
[2019-08-08 13:14] LABS: BACTERIA (WET MOUNT) 4+ BACTERIA SEEN; EPITHELIALS (WET MOUNT) 4+ EPITHELIALS SEEN; RBCS (WET MOUNT) FEW RBCS SEEN; T.VAGINALIS (WET MOUNT) TRICHOMONAS SEEN; WBCS (WET MOUNT) 2+ WBCS SEEN; YEAST (WET MOUNT) YEAST SEEN
[2019-08-08 14:26] LABS: CHLAM PCR NOT DETECTED (NOT DETECT)
--- NOTE | 2019-08-08 15:12 | RADIOLOGY REPORT (SQ) ---
EXAM DESCRIPTION: U/S OB LIMITED COMPLETED DATE/TIME: 08/08/2019 2:55 pm REASON FOR STUDY: IUP 29 weeks abd cramping cervical length COMPARISON: 05/28/2019 TECHNIQUE: Limited transabdominal grayscale ultrasound for evaluation of specific requested obstetri renato parameters. LIMITATIONS: None. FINDINGS: GATO: 10/20/2019 EGA: 29 weeks 4 days CERVICAL LENGTH: 3.3 cm Closed. CHLOÉ: 12 cm. FHR: 128 beats per minute. PRESENTATION: Breech. PLACENTA: Anterior ANATOMY: Not assessed OTHER: No other significant findings. IMPRESSION: LIMITED OBSTETRICAL ULTRASOUND WITH MEASURED PARAMETERS DELINEATED ABOVE. Trimester of : Third trimester - 28 weeks to delivery. TECHNICAL DOCUMENTATION: JOB ID: [id number] [employer]- All Rights Reserved Reading location - IP/workstation name: [email or web address]
== END 2019-08-08 15:30 | disposition home or self-care (01) ==
LOC: LC 10:47
PROVIDERS: ATTEND Obstetrics & Gynecology
PROC: 4A1HXCZ Monitoring of Products of Conception, Cardiac Rate, External Approach (ICD-10-PCS; principal; 2019-08-08)
DX: O26.893 Other specified pregnancy related conditions, third trimester (principal); R10.9 Unspecified abdominal pain; Z3A.29 29 weeks gestation of pregnancy
CPT/HCPCS: 76815; 80307; 81001; 87210; 87491; 87591

== ENCOUNTER 2019-09-03 18:03 | Outpatient (CLI) | payer BC, MEDICAID ==
[2019-09-03 18:44] LABS: APPEARANCE,URINE CLOUDY; BILIRUBIN,URINE NEGATIVE (NEGATIVE); COLOR,URINE YELLOW; GLUCOSE, URINE 50 mg/dL (NEGATIVE); KETONES,URINE TRACE mg/dL (NEGATIVE); LEUKOCYTE ESTERASE,URINE TRACE (NEGATIVE); NITRITE,URINE NEGATIVE (NEGATIVE); PROTEIN,URINE 30 mg/dL (NEGATIVE); UROBILINOGEN,URINE NEGATIVE mg/dL (<2.0)
[2019-09-03 19:02] LABS: URINE AMPHETAMINES SCREEN NEGATIVE; URINE BARBITURATES SCREEN NEGATIVE; URINE BENZODIAZEPINES SCREEN NEGATIVE; URINE COCAINE SCREEN NEGATIVE; URINE MARIJUANA (THC) SCREEN NEGATIVE; URINE METHADONE SCREEN NEGATIVE; URINE PHENCYCLIDINE SCREEN NEGATIVE
[2019-09-03 19:46] LABS: BACTERIA (WET MOUNT) 4+ BACTERIA SEEN; EPITHELIALS (WET MOUNT) 4+ EPITHELIALS SEEN; RBCS (WET MOUNT) FEW RBCS SEEN; T.VAGINALIS (WET MOUNT) TRICHOMONAS SEEN; WBCS (WET MOUNT) 3+ WBCS SEEN; YEAST (WET MOUNT) NO YEAST SEEN
--- NOTE | 2019-09-03 20:18 | Non Stress Test Report ---
Non Stress Test Datetime Report Generated by CPN: 09/03/2019 20:18 DEMOGRAPHIC EGA NST: 33.2 INDICATION Indication for Study (NST) Other: Contractions MONITORING Monitor Explained: Monitor Explained; Test Explained; Patient Verbalized Understanding Time on Monitor: 09/03/2019 18:25 Time off Monitor: 09/03/2019 20:09 NST Duration: 104 NST INTERVENTIONS NST Interventions: PO Hydration; Reposition Patient Physician Notified NST: Dr. Bloom BABY A: [id number] BABY A Movement : Present Contraction Frequency : irregular Accelerations : 15X15 Decelerations : None Variability : Moderate 6-25bpm NST Review: Meets Criteria for Reactive NST NST Review and Verified By : ROOSEVELT Nicholson Results: Reactive NST REPORT Report Trigger: Send Report
[2019-09-03 21:03] LABS: CHLAM PCR NOT DETECTED (NOT DETECT)
== END 2019-09-03 20:16 | disposition home or self-care (01) ==
LOC: LC 18:03
PROVIDERS: ATTEND Student in an Organized Health Care Education/Training Program
PROC: 4A1HXCZ Monitoring of Products of Conception, Cardiac Rate, External Approach (ICD-10-PCS; principal; 2019-09-03)
DX: O47.03 False labor before 37 completed weeks of gestation, third trimester (principal); Z3A.33 33 weeks gestation of pregnancy
CPT/HCPCS: 59025; 80307; 81001; 87210; 87491; 87591

== ENCOUNTER 2019-10-01 17:02 | Outpatient (CLI) | payer BC, MEDICAID ==
[2019-10-01 17:48] LABS: APPEARANCE,URINE SLIGHTLY-CLOUDY; BILIRUBIN,URINE NEGATIVE (NEGATIVE); COLOR,URINE YELLOW; GLUCOSE, URINE NEGATIVE (NEGATIVE); KETONES,URINE 80 mg/dL (NEGATIVE); LEUKOCYTE ESTERASE,URINE TRACE (NEGATIVE); NITRITE,URINE NEGATIVE (NEGATIVE); PROTEIN,URINE NEGATIVE (NEGATIVE); URINE SPECIFIC GRAVITY 1.013; UROBILINOGEN,URINE NEGATIVE mg/dL (<2.0)
[2019-10-01 18:00] LABS: URINE AMPHETAMINES SCREEN NEGATIVE; URINE BARBITURATES SCREEN NEGATIVE; URINE BENZODIAZEPINES SCREEN NEGATIVE; URINE COCAINE SCREEN NEGATIVE; URINE MARIJUANA (THC) SCREEN NEGATIVE; URINE METHADONE SCREEN NEGATIVE; URINE PHENCYCLIDINE SCREEN NEGATIVE
[2019-10-01 18:18] LABS: BACTERIA (WET MOUNT) 4+ BACTERIA SEEN; EPITHELIALS (WET MOUNT) 4+ EPITHELIALS SEEN; RBCS (WET MOUNT) FEW RBCS SEEN; T.VAGINALIS (WET MOUNT) NO TRICHOMONAS SEEN; WBCS (WET MOUNT) 1+ WBCS SEEN; YEAST (WET MOUNT) NO YEAST SEEN
--- NOTE | 2019-10-01 18:30 | Non Stress Test Report ---
Non Stress Test Datetime Report Generated by CPN: 10/01/2019 18:30 DEMOGRAPHIC EGA NST: 37.2 INDICATION Indication for Study (NST) Other: LC MONITORING Monitor Explained: Monitor Explained; Test Explained; Patient Verbalized Understanding Time on Monitor: 10/01/2019 17:25 Time off Monitor: 10/01/2019 18:24 NST Duration: 59 NST INTERVENTIONS NST Interventions: PO Hydration Physician Notified NST: Dr Beltrán BABY A: [id number] BABY A Movement : Present Contraction Frequency : irregular FHR Baseline : 125 Accelerations : 15X15 Decelerations : None Variability : Moderate 6-25bpm NST Review: Meets Criteria for Reactive NST NST Review and Verified By : Ulises Valerio RN NST Review and Verified By : Dayana Webb RN NST Results: Reactive NST REPORT Report Trigger: Send Report
== END 2019-10-01 18:27 | disposition home or self-care (01) ==
LOC: LC 17:02
PROVIDERS: ATTEND Obstetrics & Gynecology Gynecology
PROC: 4A1HXCZ Monitoring of Products of Conception, Cardiac Rate, External Approach (ICD-10-PCS; principal; 2019-10-01)
DX: O47.1 False labor at or after 37 completed weeks of gestation (principal); Z3A.37 37 weeks gestation of pregnancy
CPT/HCPCS: 59025; 80307; 81005; 84112; 87210

== ENCOUNTER 2019-10-13 02:39 | Inpatient (IN) | payer BC, MEDICAID ==
[2019-10-12 09:20] LABS: ABSOLUTE EOSINOPHILS # (AUTO) 0.1 10^3/uL (0.0-0.6); ABSOLUTE LYMPHOCYTES (AUTO) 1.6 10^3/uL (0.5-4.7); ABSOLUTE MONOCYTES (AUTO) 0.5 10^3/uL (0.1-1.4); ABSOLUTE NEUT (AUTO) 5.5 10^3/uL (1.7-8.2); BASOPHILS % (AUTO) 0.6 % (0-2); EOSINOPHILS % (AUTO) 1.6 % (0-6); HEMATOCRIT 39.2 % (36.0-47.0); HEMOGLOBIN 13.4 g/dL (12.0-15.5); LYMPHOCYTES % (AUTO) 21.1 % (13-45); MEAN CORPUSCULAR HEMOGLOBIN 30.8 pg (27.0-33.4); MEAN CORPUSCULAR HGB CONC 34.3 g/dL (32.0-36.0); MEAN CORPUSCULAR VOLUME 90 fl (80-97); MONOCYTES % (AUTO) 6.9 % (3-13); PLATELET COUNT 197 10^3/uL (150-450); RED BLOOD COUNT 4.35 10^6/uL (3.72-5.28); RED CELL DISTRIBUTION WIDTH 13.8 % (11.5-14.0); SEGMENTED NEUTROPHILS % (AUTO) 69.8 % (42-78); TOTAL CELLS COUNTED % (AUTO) 100 %; WHITE BLOOD COUNT 7.8 10^3/uL (4.0-10.5)
[2019-10-12 09:42] LABS: APPEARANCE,URINE SLIGHTLY-CLOUDY; BILIRUBIN,URINE NEGATIVE (NEGATIVE); COLOR,URINE YELLOW; GLUCOSE, URINE NEGATIVE (NEGATIVE); KETONES,URINE NEGATIVE (NEGATIVE); LEUKOCYTE ESTERASE,URINE NEGATIVE (NEGATIVE); NITRITE,URINE NEGATIVE (NEGATIVE); PROTEIN,URINE NEGATIVE (NEGATIVE); URINE SPECIFIC GRAVITY 1.013; UROBILINOGEN,URINE NEGATIVE mg/dL (<2.0)
[2019-10-12 09:44] LABS: URINE AMPHETAMINES SCREEN NEGATIVE; URINE BARBITURATES SCREEN NEGATIVE; URINE BENZODIAZEPINES SCREEN NEGATIVE; URINE COCAINE SCREEN NEGATIVE; URINE METHADONE SCREEN NEGATIVE; URINE PHENCYCLIDINE SCREEN NEGATIVE
[2019-10-12 09:51] LABS: URINE MARIJUANA (THC) SCREEN NEGATIVE
[2019-10-13] MEDS ORDERED: CEFAZOLIN SODIUM 2 GM in DEXTROSE 5%-WATER 100 ML IV PRN (05:00)
[2019-10-13] MEDS ORDERED: RINGERS SOLUTION,LACTATED 1,000 ML IV ONE (06:15)
[2019-10-13] MEDS ORDERED: ONDANSETRON HCL INJ/PF 4 MG/2 ML SDV ONE (07:05)
[2019-10-13] MEDS ORDERED: FENTANYL CITRATE INJ/PF 100 MCG/2 ML AMPUL ONE (07:05)
[2019-10-13] MEDS ORDERED: OXYTOCIN 10 UNIT/ML VIAL ONE (07:05)
[2019-10-13] MEDS ORDERED: KETOROLAC TROMETHAMINE INJ/PF 30 MG/1 ML SDV ONE (07:05)
[2019-10-13] MEDS ORDERED: GLYCOPYRROLATE INJ 0.4 MG/2 ML VIAL ONE (07:05)
[2019-10-13] MEDS ORDERED: MIDAZOLAM 2 MG/2 ML INJ ONE (07:05)
[2019-10-13] MEDS ORDERED: OXYTOCIN/NORMAL SALINE 20 UNIT/1,000 ML RTUINJ ONE (07:05)
[2019-10-13] MEDS ORDERED: ACETAMINOPHEN 1,000 MG/100 ML RTUPB IV ONE (07:07)
[2019-10-13] MEDS ORDERED: PHENYLEPHRINE HCL INJ/PF 10 MG/1 ML SDV ONE (07:10)
[2019-10-13] MEDS ORDERED: DIPHENHYDRAMINE HCL 50 MG/ML VIAL ONE (07:10)
[2019-10-13] MEDS ORDERED: CEFAZOLIN 1 GM/D5W RTU 1 GM/50 ML RTUPB IV ONE (07:40)
[2019-10-13] MEDS ORDERED: ONDANSETRON HCL INJ/PF 4 MG/2 ML SDV IV PRN (08:21)
[2019-10-13] MEDS ORDERED: FENTANYL CITRATE INJ/PF 100 MCG/2 ML AMPUL IV PRN ×3 (08:21)
[2019-10-13] MEDS ORDERED: MORPHINE SULFATE 10 MG/ML INJ IV PRN (08:21)
[2019-10-13] MEDS ORDERED: DIPHENHYDRAMINE HCL 50 MG/ML VIAL IV PRN (08:21)
[2019-10-13] MEDS ORDERED: OXYCODONE-ACETAMINOPHEN 5-325 MG TABLET PO PRN ×3 (08:21→09:00)
[2019-10-13] MEDS ORDERED: PROMETHAZINE HCL INJ 25 MG/1 ML VIAL IV PRN ×3 (08:21→09:00)
[2019-10-13] MEDS ORDERED: MEPERIDINE HCL/PF INJ 25 MG/1 ML DISP.SYRIN IV PRN (08:21)
[2019-10-13] MEDS ORDERED: NALBUPHINE HCL INJ 10 MG/1 ML AMPULE IM ONE (08:23)
[2019-10-13] MEDS ORDERED: ACETAMINOPHEN 325 MG TABLET PO PRN (09:00)
[2019-10-13] MEDS ORDERED: RINGERS SOLUTION,LACTATED 1,000 ML IV PRN (09:00)
[2019-10-13] MEDS ORDERED: HYDROMORPHONE HCL INJ/PF 2 MG/ML AMPULE IV PRN (09:00)
[2019-10-13] MEDS ORDERED: DIPH/PERTUSS(ACELL)/TETANUS VAC/PF 0.5 ML SYR (>=10YO) IM PRN (09:00)
[2019-10-13] MEDS ORDERED: MEASLES,MUMPS&RUBELLA VACC/PF 0.5 ML VIAL SUBCUT PRN (09:00)
[2019-10-13] MEDS ORDERED: OXYTOCIN/NORMAL SALINE 20 UNIT/1,000 ML RTUINJ IV PRN (09:00)
[2019-10-13] MEDS ORDERED: SIMETHICONE 80 MG TAB.CHEW PO PRN (09:00)
--- NOTE | 2019-10-13 09:08 | PDOC DELIVERY SUMMARY ---
Delivery Summary - Maternal Hx : II Hx # Term Pregnancies: 1 GATO: 10/20/19 Ruptured Membranes: AROM Time of Rupture: 08:24 Fluids: Clear - Delivery Presentation: Vertex Heart Rate Monitoring: Done Pre-Operatively Support Person Present: Yes Location: OR : Repeat Placenta: Within Normal Limits Delivery of Placenta Date: 10/13/19 Delivery of Placenta Time: 08:25 - Medications Type of Anesthesia:: Spinal - Infant Assess and Care Baby 1 Male Delivery of Date: 10/13/19 Delivery of Time: 08:24 at 1 minute: 9 at 5 minutes: 9 Preprinted Number On Band: [id number] Skin to Skin: Yes Skin to Skin (Mins): 2 To Nursery At: 08:32 Mode of Transport: Bassinet Delivery Weight: 3,780 Delivery Length: 20.75 in - Delivery Personnel Nursery RN: MARE HORTON Nursery RN: RULA PASCUAL RN: KRISTAL WEBBER MD: STERLING CORDOVA
--- NOTE | 2019-10-13 09:13 | Operative Report ---
Operative Report DATE OF SURGERY: 10/13/19 PREOPERATIVE DIAGNOSIS: Patient is for a repeat to prevent risk of ut erine rupture POSTOPERATIVE DIAGNOSIS: Same with the addition of uterine fibroids and the uterus is adhesed to the anterior abdominal wall OPERATION: Repeat via low transverse uterine incision SURGEON: STERLING CORDOVA ANESTHESIA: Spinal TISSUE REMOVED OR ALTERED: Placenta COMPLICATIONS: None ESTIMATED BLOOD LOSS: 500 cc INTRAOPERATIVE FINDINGS: Baby is in OP presentation. Also the uterus is adhered to the anterior abdominal wall and could not be externalized. There are uterine fibroids present as well. PROCEDURE: Patient was taken to the OR and placed in supine position after her spinal anesthesia. She is prepared and draped in sterile fashion. Snider was placed for drainage of the bladder. Low transverse incision was made and carried down the level of the fascia. The fascial incision was made with knife and extended bilaterally with curved Varela scissors. The fascia was off the rectus muscles using sharp and blunt dissection. The rectus muscles are in the midline. The peritoneum was entered without incident. The uterus is adhered to the anterior abdominal wall. Bladder blade was placed in uterine segment was identified. A low transverse incision was made creating a bladder flap. Bladder blade was placed low transverse uterine incision was made with the knife and extended with fingertips. The baby was delivered with some fundal pressure and the assistance of a Kiwi vacuum with one easy pull with the pressure in the green on the meter. The baby is occiput posterior. Mouth and nose were suctioned free. The cord is doubly clamped and cut. Baby is passed off to the senior java developer in attendance. The placenta was manually extracted with trailing membranes. Uterine contents wiped free. Uterus was closed with a running locking layer of 0 chromic suture using the second layer to imbricate the first completing a double layer closure of the uterus. The rectus muscles were brought back together with a 2-0 chromic suture. Fascia was closed with a running 0 Vicryl in 2 segments. Kobe's layer was brought together with 0 plain gut stitch and the skin was closed with running subcuticular 4-0 undyed Vicryl stitch. The wound was dressed mother and baby did well.
[2019-10-13] MEDS ORDERED: KETOROLAC TROMETHAMINE INJ/PF 30 MG/1 ML SDV IV SCH (14:00)
[2019-10-13] MEDS: DOCUSATE SODIUM 100 MG CAPSULE PO SCH ×2 (17:22→17:30)
[2019-10-13] MEDS: KETOROLAC TROMETHAMINE INJ/PF 30 MG/1 ML SDV IV SCH (17:31)
[2019-10-13] MEDS: PRENATAL VITAMIN W DHA CAPSULE PO SCH (19:05)
[2019-10-14] MEDS: KETOROLAC TROMETHAMINE INJ/PF 30 MG/1 ML SDV IV SCH ×2 (00:21→08:47)
[2019-10-14] MEDS ORDERED: LACTATED RINGERS 1000 ML IV PRN (05:00)
[2019-10-14] MEDS ORDERED: LIDOCAINE 0.5% INJ-PF (5 MG/ML) 50 ML SDV SUBCUT PRN (05:00)
[2019-10-14 08:04] LABS: HEMATOCRIT 36.8 % (36.0-47.0); HEMOGLOBIN 12.5 g/dL (12.0-15.5); MEAN CORPUSCULAR HEMOGLOBIN 30.3 pg (27.0-33.4); MEAN CORPUSCULAR HGB CONC 33.9 g/dL (32.0-36.0); MEAN CORPUSCULAR VOLUME 89 fl (80-97); PLATELET COUNT 177 10^3/uL (150-450); RED BLOOD COUNT 4.11 10^6/uL (3.72-5.28); RED CELL DISTRIBUTION WIDTH 13.8 % (11.5-14.0)
[2019-10-14] MEDS: DOCUSATE SODIUM 100 MG CAPSULE PO SCH ×2 (10:34→17:38)
[2019-10-14] MEDS: PRENATAL VITAMIN W DHA CAPSULE PO SCH (10:34)
--- NOTE | 2019-10-14 10:43 | PDOC PROGRESS REPORT ---
Subjective-OB Progress Note for:: 10/14/19 Subjective: Doing well, no c/o, ready to go home, mother at BS, voiding, ambulating Physical Exam (OB) Vital Signs: Temp Pulse Resp BP Pulse Ox 98.3 F 68 18 102/62 96 10/14/19 07:32 10/14/19 07:32 10/14/19 07:32 10/14/19 07:32 10/14/19 07:32 Intake & Output 10/13/19 10/14/19 10/15/19 06:59 06:59 06:59 Intake Total 1140 Output Total 2300 Balance -1160 Weight 109.32 kg - PIH/Pre-Eclampsia Headache: Absent Epigastric Pain: No Visual Changes: No - Dressing Removed: No - opsite Incision: Dressing, Draining - Lochia Lochia Amount: Small 10-25 ml Lochia Color: Rubra/Red - Abdomen Description: Tender, Soft, Round Hernia Present: No Fundal Description: Firm, Midline Fundal Height: u/u - u/2 Objective-Diagnostic Laboratory: 10/14/19 07:49 10/14/19 07:49 WBC 11.0 H RBC 4.11 Hgb 12.5 Hct 36.8 MCV 89 MCH 30.3 MCHC 33.9 RDW 13.8 Plt Count 177 Assessment and Plan(PN) - Assessment and Plan (1) Gestational diabetes Qualifiers: Gestational diabetes mellitus control: diet-controlled Trimester: second trimester Qualified Code(s): O24.410 - Gestational diabetes mellitus in , diet controlled Is this a current diagnosis for this admission?: Yes - Time Spent with Patient Time with patient: Less than 15 minutes Medications reviewed and adjusted accordingly: Yes - Disposition Anticipated Discharge: Home Within: within 24 hours
[2019-10-14] MEDS ORDERED: IBUPROFEN 800 MG TABLET PO SCH (12:00)
[2019-10-14] MEDS: IBUPROFEN 800 MG TABLET PO SCH ×2 (15:03→21:24)
[2019-10-14] MEDS: OXYCODONE-ACETAMINOPHEN 5-325 MG TABLET PO PRN ×2 (17:38→21:37)
[2019-10-15] MEDS: IBUPROFEN 800 MG TABLET PO SCH ×2 (02:21→09:44)
[2019-10-15] MEDS: OXYCODONE-ACETAMINOPHEN 5-325 MG TABLET PO PRN ×2 (02:23→09:44)
[2019-10-15] MEDS: DOCUSATE SODIUM 100 MG CAPSULE PO SCH (09:45)
[2019-10-15] MEDS: PRENATAL VITAMIN W DHA CAPSULE PO SCH (09:45)
--- NOTE | 2019-10-15 09:58 | PDOC PROGRESS REPORT ---
Subjective-OB Progress Note for:: 10/15/19 Subjective: Doing well, ready to go home, voiding, passing gas, OOB in room, no nausea, eating and drinking well Physical Exam (OB) Vital Signs: Temp Pulse Resp BP Pulse Ox 98.1 F 88 18 112/70 98 10/15/19 07:49 10/15/19 07:49 10/15/19 07:49 10/15/19 07:49 10/15/19 07:49 Intake & Output 10/14/19 10/15/19 10/16/19 06:59 06:59 06:59 Intake Total 1140 300 Output Total 2300 Balance -1160 300 - PIH/Pre-Eclampsia Clonus: Negative Headache: Absent Epigastric Pain: No Visual Changes: No - Dressing Removed: No - Opsite, scant sanguinous drainage noted Incision: Dressing, Draining - Lochia Lochia Amount: Scant < 10 ml Lochia Color: Rubra/Red - Abdomen Description: Tender, Soft, Round Hernia Present: No Fundal Description: Firm, Midline Fundal Height: u/u - u/2 Objective-Diagnostic Laboratory: 10/14/19 07:49 Assessment and Plan(PN) - Assessment and Plan (1) Gestational diabetes Qualifiers: Gestational diabetes mellitus control: diet-controlled Trimester: second trimester Qualified Code(s): O24.410 - Gestational diabetes mellitus in , diet controlled Is this a current diagnosis for this admission?: Yes - Time Spent with Patient Time with patient: Less than 15 minutes Medications reviewed and adjusted accordingly: Yes - Disposition Anticipated Discharge: Home Within: within 24 hours
--- NOTE | 2019-10-15 10:06 | PDOC DISCHARGE SUMMARY ---
Impression - Admit/DC Date/PCP Admission Date/Primary Care Provider: 10/13/19 04:57 ROGERIO GRAY MD Discharge Date: 10/15/19 - Discharge Diagnosis (1) Gestational diabetes Is this a current diagnosis for this admission?: Yes - Additional Information Resuscitation Status: Full Code Discharge Diet: As Tolerated, Regular Discharge Activity: Activity As Tolerated, No Driving, No Lifting Over 10 Pounds, No Lifting/Push/Pulling, Pelvic Rest, No tub bath Referrals: [facility] [Provider Group] Prescriptions: Oxycodone HCl/Acetaminophen [Percocet 5-325 mg Tablet] 1 tab PO Q4HP PRN #20 tablet PRN Reason: Ibuprofen [Motrin 800 mg Tablet] 800 mg PO Q6A #30 tablet Home Medications: Vitamin [-U Multiple Vitamin Capsule] 1 cap PO DAILY 06/11/19 Ibuprofen [Motrin 800 mg Tablet] 800 mg PO Q6A #30 tablet 10/15/19 Oxycodone HCl/Acetaminophen [Percocet 5-325 mg Tablet] 1 tab PO Q4HP PRN #20 tablet 10/15/19 Vit/Dha [ Multi + Dha Capsule] 1 cap PO DAILY capsule 10/15/19 HPI Gestational Age: 39 Reason(s) for Admission: Ceasarean Section-Repeat Procedures: NST, Ultrasound Intrapartum Procedure(s): : Low Cervical, Transverse Hospital Course Hospital Course: routine post op, no complications Results Laboratory Results: WBC 11.0 10^3/uL (4.0-10.5) H 10/14/19 07:49 RBC 4.11 10^6/uL (3.72-5.28) 10/14/19 07:49 Hgb 12.5 g/dL (12.0-15.5) 10/14/19 07:49 Hct 36.8 % (36.0-47.0) 10/14/19 07:49 MCV 89 fl (80-97) 10/14/19 07:49 MCH 30.3 pg (27.0-33.4) 10/14/19 07:49 MCHC 33.9 g/dL (32.0-36.0) 10/14/19 07:49 RDW 13.8 % (11.5-14.0) 10/14/19 07:49 Plt Count 177 10^3/uL (150-450) 10/14/19 07:49 Lymph % (Auto) 21.1 % (13-45) 10/12/19 08:53 [place] % (Auto) 6.9 % (3-13) 10/12/19 08:53 Eos % (Auto) 1.6 % (0-6) 10/12/19 08:53 Baso % (Auto) 0.6 % (0-2) 10/12/19 08:53 Absolute Neuts (auto) 5.5 10^3/uL (1.7-8.2) 10/12/19 08:53 Absolute Lymphs (auto) 1.6 10^3/uL (0.5-4.7) 10/12/19 08:53 Absolute Monos (auto) 0.5 10^3/uL (0.1-1.4) 10/12/19 08:53 Absolute Eos (auto) 0.1 10^3/uL (0.0-0.6) 10/12/19 08:53 Absolute Basos (auto) 0.0 10^3/uL (0.0-0.2) 10/12/19 08:53 Seg Neutrophils % 69.8 % (42-78) 10/12/19 08:53 POC Glucose 92 mg/dL (70-110) 10/13/19 05:43 Urine Color YELLOW 10/12/19 08:53 Urine Appearance SLIGHTLY-CLOUDY 10/12/19 08:53 Urine pH 7.0 (5.0-9.0) 10/12/19 08:53 Ur Specific [place] 1.013 10/12/19 08:53 Urine Protein NEGATIVE mg/dL (NEGATIVE) 10/12/19 08:53 Urine Glucose (UA) NEGATIVE mg/dL (NEGATIVE) 10/12/19 08:53 Urine Ketones NEGATIVE mg/dL (NEGATIVE) 10/12/19 08:53 Urine Blood NEGATIVE (NEGATIVE) 10/12/19 08:53 Urine Nitrite NEGATIVE (NEGATIVE) 10/12/19 08:53 Urine Bilirubin NEGATIVE (NEGATIVE) 10/12/19 08:53 Urine Urobilinogen NEGATIVE mg/dL (<2.0) 10/12/19 08:53 Ur Leukocyte Esterase NEGATIVE (NEGATIVE) 10/12/19 08:53 Urine WBC (Auto) 1 /HPF 10/12/19 08:53 Urine RBC (Auto) 1 /HPF 10/12/19 08:53 Urine Bacteria (Auto) TRACE /HPF 10/12/19 08:53 Squamous Epi Cells Auto 3 /HPF 10/12/19 08:53 Urine Mucus (Auto) MOD /LPF 10/12/19 08:53 Urine Ascorbic Acid NEGATIVE (NEGATIVE) 10/12/19 08:53 Urine Opiates Screen NEGATIVE 10/12/19 08:53 Urine Methadone Screen NEGATIVE 10/12/19 08:53 Ur Barbiturates Screen NEGATIVE 10/12/19 08:53 Ur Phencyclidine Scrn NEGATIVE 10/12/19 08:53 Ur Amphetamines Screen NEGATIVE 10/12/19 08:53 U Benzodiazepines Scrn NEGATIVE 10/12/19 08:53 Urine Cocaine Screen NEGATIVE 10/12/19 08:53 U Marijuana (THC) Screen NEGATIVE 10/12/19 08:53 Blood Type B POSITIVE 10/12/19 08:53 Antibody Screen NEGATIVE 10/12/19 08:53 Plan Health Concerns: infections, wound healing Plan of Treatment: d/c home, rev S&S to report, no driving, eat high protein diet, take pain mediction as needed Goals: no complication Time Spent: Less than 30 Minutes
[2019-10-15 11:57] VITALS: BP 113/66
== END 2019-10-15 13:40 | disposition home or self-care (01) | DRG 788 ==
LOC: 2S 04:57
PROVIDERS: ADMIT Obstetrics & Gynecology; ATTEND Obstetrics & Gynecology
PROC: 10D00Z1 Extraction of Products of Conception, Low, Open Approach (ICD-10-PCS; principal; 2019-10-13 07:45)
PROC: 3E0234Z Introduction of Serum, Toxoid and Vaccine into Muscle, Percutaneous Approach (ICD-10-PCS; 2019-10-15)
DX: O34.211 Maternal care for low transverse scar from previous cesarean delivery (principal); O24.420 Gestational diabetes mellitus in childbirth, diet controlled; N85.8 Other specified noninflammatory disorders of uterus; Z3A.39 39 weeks gestation of pregnancy; Z37.0 Single live birth; Z23 Encounter for immunization
CPT/HCPCS: 1961; 36415; 59025; 80307; 81001; 82962; 85025; 85027; 86850; 86900; 86901; 90715; 94760; 94799; J0131; J0690; J1200; J1885; J2250; J2300; J2370; J2405; J2590; J3010; J3490; J7060; J7120

== ENCOUNTER 2020-03-21 15:51 | Emergency (ER) | payer BC, MEDICAID ==
--- NOTE | 2020-03-21 17:59 | ER Document Report ---
ED General - General Chief Complaint: Cough Stated Complaint: COUGH Notes: Patient is a 29-year-old -Romanian female with a past medical history of seasonal allergies presents the emergency department the chief complaint of cough for the past 3 weeks. Patient was recently evaluated by her PCP and diagnosed with seasonal allergies. She states that she lives in a house with a cold positive patient and her children are sick as well. She was evaluated via telemedicine today with them and advised to come to the emergency department for testing and care. Mom states [id number] antihistamines do not work for her so she does not take them. She reports a mixed presentation cough. No shortness of breath or chest pain. No fevers, vomiting or diarrhea. No night sweats or chills. No recent travel. 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 TRAVEL OUTSIDE OF THE [place] IN LAST 30 DAYS: No - Related Data Allergies/Adverse Reactions: iodine [Iodine] Allergy (Severe, Verified 10/12/19 09:30) Swelling of tongue nuts Allergy (Severe, Uncoded 10/12/19 09:30) Swelling of tongue Past Medical History - Social History Smoking Status: Never Smoker Family History: None - Past Medical History Cardiac Medical History: Denies: Hx Hypertension, Hx Pulmonary Embolism, Hx Heart Murmur Pulmonary Medical History: Denies: Hx Asthma, Hx Sleep Apnea, Hx Tuberculosis Neurological Medical History: Reports: Hx Migraine. Denies: Hx Cerebrovascular Accident, Hx Seizures Endocrine Medical History: Denies: Hx Hyperthyroidism, Hx Hypothyroidism Renal/ Medical History: Reports: Hx Kidney Stones. Denies: Hx Peritoneal Dialysis GI Medical History: Denies: Hx Gastroesophageal Reflux Disease, Hx Hiatal Her carol, Hx Ulcer Musculoskeletal Medical History: Denies Hx Fibromyalgia Traumatic Medical History: Denies: Hx Fractures Infectious Medical History: Denies: Hx HIV Past Surgical History: Reports: Hx Section - x1 - Immunizations Hx Diphtheria, Pertussis, Tetanus Vaccination: Yes Review of Systems - Review of Systems Respiratory: Cough -: Yes All other systems reviewed and negative Physical Exam - Vital signs Vitals: Temp Pulse Resp BP Pulse Ox 98.8 F 103 H 16 87/53 L 98 03/21/20 16:24 03/21/20 16:24 03/21/20 16:24 03/21/20 16:24 03/21/20 16:24 - General General appearance: Appears well, Alert In distress: None - HEENT Head: Normocephalic, Atraumatic Eyes: Normal Conjunctiva: Normal Extraocular movements intact: Yes Eyelashes: Normal Pupils: PERRL Ears: Normal External canal: Normal Tympanic membrane: Normal Sinus: Normal Nasal: Normal Pharynx: Normal Neck: Normal, Supple - Respiratory Respiratory status: No respiratory distress Chest status: Nontender Breath sounds: Normal Chest palpation: Normal - Cardiovascular Rhythm: Regular Heart sounds: Normal auscultation - Neurological Neuro grossly intact: Yes Cognition: Normal Orientation: AAOx4 - Psychological Associated symptoms: Normal affect, Normal mood - Skin Skin Temperature: Warm Skin Moisture: Dry Skin Color: Normal Course - Re-evaluation Re-evalutation: 03/21/20 19:34 X-ray showing a right basilar pneumonia. Patient is currently also a patient under investigation for COVID-19, pending swallow. She will self isolate at home and quarantine until a negative result is achieved until she hears from a healthcare provider for further instructions if a positive result is found. She will follow-up with her regular doctor preferably via telemedicine for reevaluation in 2 to 3 days. Advised to return here or any ER immediately with any new, persistent or worsening symptoms. She verbalized understood and agreed. - Vital Signs Vital signs: Temp Pulse Resp BP Pulse Ox 98.8 F 103 H 16 124/76 98 03/21/20 16:24 03/21/20 16:24 03/21/20 16:24 03/21/20 18:13 03/21/20 16:24 Discharge - Discharge Clinical Impression: Person under investigation for COVID-19 Pneumonia Qualifiers: Pneumonia type: due to unspecified organism Laterality: unspecified laterality Lung location: unspecified part of lung Qualified Code(s): J18.9 - Pneumonia, unspecified organism Condition: Stable Disposition: HOME, SELF-CARE Instructions: Pneumonia ([facility]), COVID-19 Guidance for Persons Under Investigation Additional Instructions: Please take your antibiotics as prescribed. Please quarantine in your home until a negative COVID-19 result is found. If a positive result is found please await instruction from the health care provider who called you for further care and management. Please follow-up with your doctor in 2 to 3 days via telemedicine for reevaluation. Please return here any ER immediately with any new, persistent or worsening symptoms. Prescriptions: Amoxicillin Trihydrate [Amoxil 500 mg Capsule] 500 mg PO TID #29 capsule Azithromycin [Zithromax 250 mg Tablet] 250 mg PO DAILY #4 tablet
[2020-03-21] MEDS ORDERED: AZITHROMYCIN 250 MG TABLET PO STA (18:51)
[2020-03-21] MEDS ORDERED: AMOXICILLIN TRIHYDRATE 500 MG CAPSULE PO ONE (18:51)
--- NOTE | 2020-03-21 18:51 | RADIOLOGY REPORT (SQ) ---
EXAM DESCRIPTION: CHEST SINGLE VIEW IMAGES COMPLETED DATE/TIME: 03/21/2020 6:26 pm REASON FOR STUDY: cough COMPARISON: None. EXAM PARAMETERS: NUMBER OF VIEWS: One view. TECHNIQUE: Single frontal radiographic view of the chest acquired. RADIATION DOSE: NA LIMITATIONS: None. FINDINGS: LUNGS AND PLEURA: Minimal right basilar airspace disease just above the hemidiaphragm. Lungs otherwise grossly clear. No pleural effusion or pneumothorax. MEDIASTINUM AND HILAR STRUCTURES: No masses. Contour normal. HEART AND VASCULAR STRUCTURES: Heart normal in size. Normal vasculature. BONES: No acute findings. HARDWARE: None in the chest. OTHER: No other significant finding. IMPRESSION: Minimal right basilar airspace disease TECHNICAL DOCUMENTATION: JOB ID: [id number] 2010 [employer]- All Rights Reserved Reading location - IP/workstation name: [email or web address]
[2020-03-21 20:42] VITALS: BP 123/70
== END 2020-03-21 20:42 | disposition home or self-care (01) ==
LOC: ER 15:51
DX: U07.1 COVID-19 (principal); J18.9 Pneumonia, unspecified organism; R05 Cough; Z91.018 Allergy to other foods
CPT/HCPCS: 99283; 87635; 71045; C9803

== ENCOUNTER → 2020-05-31 | Outpatient (CLI) | payer BC, MEDICAID ==
[2020-06-01 08:54] LABS: HEMATOCRIT 40.6 % (36.0-47.0); HEMOGLOBIN 13.8 g/dL (12.0-15.5); MEAN CORPUSCULAR HEMOGLOBIN 30.6 pg (27.0-33.4); MEAN CORPUSCULAR HGB CONC 34.1 g/dL (32.0-36.0); MEAN CORPUSCULAR VOLUME 90 fl (80-97); PLATELET COUNT 293 10^3/uL (150-450); RED BLOOD COUNT 4.53 10^6/uL (3.72-5.28); RED CELL DISTRIBUTION WIDTH 13.6 % (11.5-14.0); WHITE BLOOD COUNT 5.3 10^3/uL (4.0-10.5)
[2020-06-01 09:16] LABS: ALBUMIN 4.1 g/dL (3.5-5.0); ALKALINE PHOSPHATASE 49 U/L (38-126); ANION GAP 5 (5-19); ASPARTATE AMINO TRANSFERASE 17 U/L (14-36); BILIRUBIN,DIRECT 0.2 mg/dL (0.0-0.4); BILIRUBIN,TOTAL 0.6 mg/dL (0.2-1.3); BLOOD UREA NITROGEN 11 mg/dL (7-20); CALCIUM 9.5 mg/dL (8.4-10.2); CARBON DIOXIDE 26 mmol/L (22-30); CHLORIDE 106 mmol/L (98-107); CHOLESTEROL 206.24 mg/dL (0-200); GLUCOSE 102 mg/dL (75-110); POTASSIUM 4.4 mmol/L (3.6-5.0); TOTAL PROTEIN 7.5 g/dL (6.3-8.2); TRIGLYCERIDES 87 mg/dL (<150)
[2020-06-01 09:27] LABS: DIRECT LDL 125 mg/dL (<100)
[2020-06-01 09:31] LABS: FREE T4 (FREE THYROXINE) 0.91 ng/dL (0.78-2.19)
[2020-06-01 09:44] LABS: THYROID STIMULATING HORMONE 1.23 uIU/mL (0.47-4.68)
== END ==
LOC: OD 11:47
PROVIDERS: ATTEND Internal Medicine
DX: J30.9 Allergic rhinitis, unspecified (principal); H10.10 Acute atopic conjunctivitis, unspecified eye; N20.0 Calculus of kidney; G43.909 Migraine, unspecified, not intractable, without status migrainosus; E66.9 Obesity, unspecified; Z86.32 Personal history of gestational diabetes
CPT/HCPCS: 36415; 80053; 80061; 83036; 84436; 84439; 84443; 84480; 85027